=== PATIENT | male | born 1955 | race Caucasian/White ===

== ENCOUNTER → 2017-06-08 | Outpatient (CLI) | payer OTHER ==
--- NOTE | 2017-06-09 08:33 | USB ---
Reason for exam: clinical finding. History: Family history of breast cancer in mother at age 60. Indicated problem(s): palpable abnormality in the left breast. Physical Findings: Nurse Summary: 1cm nodule movable, tender with palpation (nurse rm). US Breast BILAT Right breast ultrasound includes all four quadrants, the retroareolar region and axilla. Finding demonstrates several normal nodes in the right axilla. Left breast ultrasound includes all four quadrants, the retroareolar region and axilla. Finding demonstrates a 1.9 x 0.9 x 1.6cm oval, solid, isoechoic lesion at 8 o'clock, questionable lipoma. These results were verbally communicated with the patient and result sheet given to the patient on 06/08/17. ASSESSMENT: Probably benign, BI-RAD 3 RECOMMENDATION: Ultrasound of the left breast in 6 months. Manage patient on a clinical basis.
== END | disposition home or self-care (01) ==
LOC: RADUSWWP 14:29
PROVIDERS: ATTEND Family Medicine
DX: D48.60 Neoplasm of uncertain behavior of unspecified breast (principal)

== ENCOUNTER → 2019-03-23 | Outpatient (CLI) | payer OTHER ==
--- NOTE | 2019-03-23 15:03 | USB ---
Reason for exam: clinical finding. History: Family history of breast cancer in mother at age 60 and breast cancer in maternal aunt. US Breast BILAT Right limited breast ultrasound including focal area of concern, retroareolar and axilla demonstrates a 0.5 x 0.5 x 0.3cm hyperechoic lesion at 2 o'clock appears as a lipoma or hemangioma. Left complete breast ultrasound includes all four quadrants, the retroareolar region and axilla. Finding demonstrates a 2.2 x 1.6 x 0.8cm lesion at 8 o'clock, isoechoic, compresses previoiusly measured 2.0 x 0.9 x 1.6cm. These results were verbally communicated with the patient and result sheet given to the patient on 03/23/19. ASSESSMENT: Benign, BI-RAD 2 RECOMMENDATION: Clinical management of both breasts. Manage patient on a clinical basis.
--- NOTE | 2019-03-24 08:01 | MM ---
Reason for exam: clinical finding. History: Family history of breast cancer in mother at age 60 and breast cancer in maternal aunt. Indicated problem(s): lump or thickening in both breasts. Physical Findings: Nurse Summary: 1.5cm nodule in the left breast at 8 o'clock, pain with palpation (nurse mj). MG Diagnostic Mammo w CAD MANPREET Bilateral CC and MLO view(s) were taken. Benign appearing calcification in the left breast. No suspicious abnormality. These results were verbally communicated with the patient and result sheet given to the patient on 03/23/19. ASSESSMENT: Benign, BI-RAD 2 RECOMMENDATION: Clinical management of both breasts. Manage patient on a clinical basis.
== END | disposition home or self-care (01) ==
LOC: RADMAMWWP 02-15 09:19
PROVIDERS: ATTEND Family Medicine
DX: N63.0 Unspecified lump in unspecified breast (principal)
CPT/HCPCS: 77066

== ENCOUNTER 2019-12-17 17:09 | Emergency (ER) | payer OTHER ==
[2019-12-17] MEDS ORDERED: SODIUM CHLORIDE 0.9% 500 ML 500 ML IV STA (17:23)
[2019-12-17 17:39] LABS: Basophils % (A) 0 %; Eosinophils # (A) 0.1 k/uL (0-0.7); Eosinophils % (A) 1 %; HCT 43.2 % (39.0-53.0); Lymphocytes # (A) 2.6 k/uL (1.0-4.8); Lymphocytes % (A) 32 %; MCH 31.5 pg (25.0-35.0); MCHC 34.6 g/dL (31.0-37.0); MCV 90.9 fL (80.0-100.0); Mean Platelet Volume 10.2; Monocytes # (A) 0.3 k/uL (0-1.0); Monocytes % (A) 4 %; Neutrophils # (A) 4.8 k/uL (1.3-7.7); Neutrophils % (A) 60 %; Platelet Count 193 k/uL (150-450); RBC 4.75 m/uL (4.30-5.90); RDW 13.3 % (11.5-15.5)
[2019-12-17] MEDS ORDERED: LORazepam 2 MG/ML INJ IV STA (17:44)
[2019-12-17 17:50] LABS: Partial Thromboplastin Time 29.8 sec (22.0-30.0); Prothrombin Time 10.5 sec (9.0-12.0)
--- NOTE | 2019-12-17 17:50 | ED ---
General Adult HPI - General Chief complaint: Shortness of Breath Stated complaint: YIMI Time Seen by Provider: 12/17/19 17:10 Source: patient, EMS, RN notes reviewed Mode of arrival: EMS Limitations: no limitations - History of Present Illness Initial comments: 64-year-old male a past medical history of hypertension, CABG several years ago presents to the emergency department for a chief complaint of cough, shortness of breath. This has apparently been going on for 3 days. Patient has not noticed any fevers. Patient is a smoker but does not believe he has a history of COPD. Patient states his was quarantined for coronavirus however she was not diagnosed. He is not sure why she was quarantine. He does not have any chest pain.Patient has no other complaints at this time including chest pain, abdominal pain, nausea or vomiting, headache, or visual changes. - Related Data Allergies Allergy/AdvReac Type Severity Reaction Status Date / Time iodine Allergy Unknown Verified 12/17/19 17:39 shellfish derived [Shellfish] Allergy Unknown Verified 12/17/19 17:39 Review of Systems ROS Statement: Those systems with pertinent positive or pertinent negative responses have been documented in the HPI. ROS Other: All systems not noted in ROS Statement are negative. Past Medical History Past Medical History: Hypertension History of Any Multi-Drug Resistant Organisms: None Reported, MRSA Date of last positivie culture/infection: 2019 MDRO Source:: unknown Past Surgical History: Unable to Obtain Past Psychological History: Anxiety Smoking Status: Current every day smoker Past Alcohol Use History: None Reported Past Drug Use History: Marijuana General Exam Limitations: no limitations General appearance: alert, in no apparent distress Head exam: Present: atraumatic, normocephalic, normal inspection Eye exam: Present: normal appearance, PERRL, EOMI. Absent: scleral icterus, conjunctival injection, periorbital swelling ENT exam: Present: normal exam, mucous membranes moist, normal external ear exam Neck exam: Present: normal inspection, full ROM. Absent: tenderness, meningismus Respiratory exam: Present: normal lung sounds bilaterally. Absent: respiratory distress, wheezes, rales, rhonchi, stridor Cardiovascular Exam: Present: regular rate, normal rhythm, normal heart sounds. Absent: systolic murmur, diastolic murmur, rubs, gallop, clicks GI/Abdominal exam: Present: soft, normal bowel sounds. Absent: distended, tenderness, guarding, rebound, rigid Neurological exam: Present: alert Course Vital Signs 12/17/19 12/17/19 12/17/19 17:13 17:16 17:30 Temperature 97.9 F Pulse Rate 71 80 Respiratory 22 22 20 Rate Blood Pressure 145/104 129/81 O2 Sat by Pulse 100 100 Oximetry 12/17/19 12/17/19 18:16 18:32 Temperature 98.0 F Pulse Rate 76 79 Respiratory 18 16 Rate Blood Pressure 129/84 O2 Sat by Pulse 97 99 Oximetry EKG Findings - EKG Comments: EKG Findings:: Sinus rhythm, ventricular rate 77, LA interval 214, QTc 457 Medical Decision Making - Medical Decision Making On initial examination patient was very anxious and was hyperventilating. However after about 20 minutes he slowed his breathing and felt much better. Patient is noted to have a cough which she states is nonproductive. He is currently resting comfortably and satting at 100% room air. Lungs are clear bilaterally. Patient is not in any respiratory distress. He is lying back in bed without accessory muscle usage. Chest x-ray shows no active cardiopulmonary disease. CBC CMP unremarkable. Troponin is negative. patient was reevaluated and has a normal respiratory rate. He is much more calm. He is denying shortness of breath at this time. I suspect patient had a acute episode of anxiety which he does agree with. He is not in any respiratory distress at this time. Patient is feeling well enough to go home. In fact he is requesting discharge. Patient will follow up with primary care. If he has any worsening symptoms including chest pain he will return here to the emergency room. - Lab Data Result diagrams: 12/17/19 17:26 12/17/19 17:26 Lab Results 12/17/19 12/17/19 12/17/19 Range/Units 17:26 17:26 17:26 WBC 8.0 (3.8-10.6) k/uL RBC 4.75 (4.30-5.90) m/uL Hgb 15.0 (13.0-17.5) gm/dL Hct 43.2 (39.0-53.0) % MCV 90.9 (80.0-100.0) fL MCH 31.5 (25.0-35.0) pg MCHC 34.6 (31.0-37.0) g/dL RDW 13.3 (11.5-15.5) % Plt Count 193 (150-450) k/uL Neutrophils % 60 % Lymphocytes % 32 % Monocytes % 4 % Eosinophils % 1 % Basophils % 0 % Neutrophils # 4.8 (1.3-7.7) k/uL Lymphocytes # 2.6 (1.0-4.8) k/uL Monocytes # 0.3 (0-1.0) k/uL Eosinophils # 0.1 (0-0.7) k/uL Basophils # 0.0 (0-0.2) k/uL PT 10.5 (9.0-12.0) sec INR 1.0 (<1.2) APTT 29.8 (22.0-30.0) sec Sodium 137 (137-145) mmol/L Potassium 4.6 (3.5-5.1) mmol/L Chloride 104 (98-107) mmol/L Carbon Dioxide 22 (22-30) mmol/L Anion Gap 11 mmol/L BUN 20 (9-20) mg/dL Creatinine 1.11 (0.66-1.25) mg/dL Est GFR (CKD-EPI)AfAm 80 (>60 ml/min/1.73 sqM) Est GFR (CKD-EPI)NonAf 69 (>60 ml/min/1.73 sqM) Glucose 94 (74-99) mg/dL Calcium 9.6 (8.4-10.2) mg/dL Total Bilirubin 0.5 (0.2-1.3) mg/dL AST 27 (17-59) U/L ALT 21 (4-49) U/L Alkaline Phosphatase 77 (38-126) U/L Troponin I (0.000-0.034) ng/mL C-Reactive Protein 9.7 (<10.0) mg/L Total Protein 6.9 (6.3-8.2) g/dL Albumin 4.4 (3.5-5.0) g/dL 12/17/19 Range/Units 17:26 WBC (3.8-10.6) k/uL RBC (4.30-5.90) m/uL Hgb (13.0-17.5) gm/dL Hct (39.0-53.0) % MCV (80.0-100.0) fL MCH (25.0-35.0) pg MCHC (31.0-37.0) g/dL RDW (11.5-15.5) % Plt Count (150-450) k/uL Neutrophils % % Lymphocytes % % Monocytes % % Eosinophils % % Basophils % % Neutrophils # (1.3-7.7) k/uL Lymphocytes # (1.0-4.8) k/uL Monocytes # (0-1.0) k/uL Eosinophils # (0-0.7) k/uL Basophils # (0-0.2) k/uL PT (9.0-12.0) sec INR (<1.2) APTT (22.0-30.0) sec Sodium (137-145) mmol/L Potassium (3.5-5.1) mmol/L Chloride (98-107) mmol/L Carbon Dioxide (22-30) mmol/L Anion Gap mmol/L BUN (9-20) mg/dL Creatinine (0.66-1.25) mg/dL Est GFR (CKD-EPI)AfAm (>60 ml/min/1.73 sqM) Est GFR (CKD-EPI)NonAf (>60 ml/min/1.73 sqM) Glucose (74-99) mg/dL Calcium (8.4-10.2) mg/dL Total Bilirubin (0.2-1.3) mg/dL AST (17-59) U/L ALT (4-49) U/L Alkaline Phosphatase (38-126) U/L Troponin I <0.012 (0.000-0.034) ng/mL C-Reactive Protein (<10.0) mg/L Total Protein (6.3-8.2) g/dL Albumin (3.5-5.0) g/dL Disposition Clinical Impression: Cough Disposition: HOME SELF-CARE Condition: Good Instructions (If sedation given, give patient instructions): Acute Cough (ED) Additional Instructions: Please follow up with primary care in 1-2 days. Otherwise, return for any worsening symptoms including chest pain or worsening shortness of breath. Self quarantined for 2 weeks. Is patient prescribed a controlled substance at d/c from ED?: No Referrals: Aaron Boyd MD [Primary Care Provider] - 1-2 days Time of Disposition: 18:18
[2019-12-17 17:54] LABS: Albumin 4.4 g/dL (3.5-5.0); C Reactive Protein 9.7 mg/L (<10.0); Calcium 9.6 mg/dL (8.4-10.2); Potassium 4.6 mmol/L (3.5-5.1); Total Bilirubin 0.5 mg/dL (0.2-1.3); Total Protein 6.9 g/dL (6.3-8.2)
--- NOTE | 2019-12-17 18:03 | XR ---
EXAMINATION TYPE: XR chest 1V portable DATE OF EXAM: 12/17/2019 COMPARISON: 12/27/2013 HISTORY: Short of breath and cough TECHNIQUE: FINDINGS: Heart is normal. Lungs are clear of infiltrate. There is no heart failure. There are chest leads. Costophrenic angles are clear. Bony thorax is intact. IMPRESSION: No active cardiopulmonary disease. No change.
[2019-12-17 18:34] VITALS: BP 129/84; PULSE 79; RESP 16; TEMP 98
== END 2019-12-17 18:55 | disposition home or self-care (01) ==
LOC: EC 17:09
DX: R05 Cough (principal); R06.02 Shortness of breath; R06.00 Dyspnea, unspecified; I10 Essential (primary) hypertension; F17.200 Nicotine dependence, unspecified, uncomplicated; Z91.048 Other nonmedicinal substance allergy status; Z91.013 Allergy to seafood
CPT/HCPCS: 36415; 71045; 80053; 84484; 85025; 85610; 85730; 86140; 93005; 96360; 99285

== ENCOUNTER 2022-10-10 22:18 | Inpatient (IN) | payer OTHER, MEDICARE ==
--- NOTE | 2022-10-10 22:27 | ED ---
Weakness HPI - General Chief complaint: Fall Stated complaint: Fall Time Seen by Provider: 10/10/22 22:19 Source: patient, EMS, RN notes reviewed, old records reviewed Mode of arrival: EMS Limitations: no limitations - History of Present Illness Initial comments: This is a 67-year-old male DF for evaluation. Patient states his main complaint significant depression he's not feeling well is very weak is decreased mobility and decreased activity not functioning ADLs recently lost his and otherwise does not feel well. He denies current homicidal or suicidal thoughts and denies drug or alcohol abuse -: unknown Location: generalized Severity: moderate Severity scale (1-10): 4 Improves with: none Worsens with: none Associated Symptoms: confusion, loss of appetite, nausea/vomiting, shortness of breath - Related Data Allergies Allergy/AdvReac Type Severity Reaction Status Date / Time iodine Allergy Anaphylaxis Verified 12/17/19 18:52 shellfish derived [Shellfish] Allergy Anaphylaxis Verified 12/17/19 18:52 Review of Systems ROS Statement: Those systems with pertinent positive or pertinent negative responses have been documented in the HPI. ROS Other: All systems not noted in ROS Statement are negative. Past Medical History Past Medical History: Hypertension History of Any Multi-Drug Resistant Organisms: None Reported, MRSA Date of last positivie culture/infection: 2019 MDRO Source:: unknown Past Surgical History: Unable to Obtain Past Psychological History: Anxiety Past Alcohol Use History: None Reported Past Drug Use History: Marijuana General Exam Limitations: no limitations General appearance: alert, in no apparent distress Head exam: Present: atraumatic, normocephalic, normal inspection Eye exam: Present: normal appearance, PERRL, EOMI. Absent: scleral icterus, conjunctival injection, periorbital swelling ENT exam: Present: normal exam, mucous membranes moist Neck exam: Present: normal inspection. Absent: tenderness, meningismus, lymphadenopathy Respiratory exam: Present: normal lung sounds bilaterally. Absent: respiratory distress, wheezes, rales, rhonchi, stridor Cardiovascular Exam: Present: regular rate, normal rhythm, normal heart sounds. Absent: systolic murmur, diastolic murmur, rubs, gallop, clicks GI/Abdominal exam: Present: soft, normal bowel sounds. Absent: distended, tenderness, guarding, rebound, rigid Extremities exam: Present: normal inspection, full ROM, normal capillary refill. Absent: tenderness, pedal edema, joint swelling, calf tenderness Back exam: Present: normal inspection Neurological exam: Present: alert, oriented X3, CN II-XII intact Psychiatric exam: Present: normal affect, normal mood Skin exam: Present: warm, dry, intact, normal color. Absent: rash Course Vital Signs 10/10/22 22:21 Temperature 97.6 F Pulse Rate 106 H Respiratory 28 H Rate Blood Pressure 212/106 O2 Sat by Pulse 99 Oximetry - Reevaluation(s) Reevaluation #1: 10/10/22 23:59 Medical records reviewed Reevaluation #2: 10/10/22 23:59 No improvement here in the ER Reevaluation #3: 10/10/22 23:59 Patient informed of results and questions are answered Reevaluation #4: 10/10/22 23:59 Differential Weakness: Hypoglycemia, shock, sepsis, hyponatremia, anemia, infection, NH, ETOH, adverse medicine reaction, overdose, stroke, this is not meant to be an all-inclusive list. Reevaluation #5: 10/10/22 23:59 Was pt. sent in by a medical professional or institution? @ -no Did you speak to anyone other than the patient for history? @ -no Did you review nursing and triage notes? @ -agree Were old charts reviewed? @ -no prior Differential Diagnosis? @ -no prior EKG interpreted by me (3pts min.)? @ -[none] X-rays interpreted by me (1pt min.)? @ -[none] CT interpreted by me (1pt min.)? @ -[none] U/S interpreted by me (1pt. min.)? @ -[none] What testing was considered but not performed? (CT, X-rays, U/S, labs)? Why? @ no What meds were considered but not given? Why? @ -[none] Did you discuss the management of the patient with other professionals? @ -no Did you reconcile home meds? @ -[none] Was smoking cessation discussed for >3mins.? @ -[none] Was critical care preformed (if so, how long)? @ -[none] Were there social determinants of health that impacted care today? How? ( Homelessness, low income, unemployed, alcoholism, drug addiction, transportation, low edu. Level, literacy, decrease access to med. care, nursing home, rehab)? @ -no Was there de-escalation of care discussed even if they declined? (Discuss DNR or withdrawal of care, Hospice)? @ -no What co-morbidities impacted this encounter? (DM, HTN, Smoking, COPD, CAD, Cancer, CVA, Hep., AIDS, mental health diagnosis, sleep apnea, morbid obesity)? @ -no Was patient admitted / discharged? @ -dc ] Undiagnosed new problem with uncertain prognosis? @ -[none] Drug Therapy requiring intensive monitoring for toxicity (Heparin, Nitro, Insulin, Cardizem)? @ -[none] Were any procedures done? @ -[none] Diagnosis/symptom? @ -[default] Acute, or Chronic, or Acute on Chronic? @ -[default] Uncomplicated (without systemic symptoms) or Complicated (systemic symptoms)? @ -[default] Side effects of treatment? @ -[none] Exacerbation, Progression, or Severe Exacerbation] @ -[no] Poses a threat to life or bodily function? @ -[no] - Consultations Consultation #1: Spoke with admitting physicians agreeable with this patient EKG Findings - EKG Comments: EKG Findings:: EKG sinus 91 MT 185 QRS 114 QTc 445 Medical Decision Making - Medical Decision Making 67 male to the ER admitted for elevated blood sugar new onSet diabetes hyperglycemia weakness fall with severe depression. Patient be admitted for evaluation by psychiatry and blood sugar control - Lab Data Result diagrams: 10/10/22 22:52 10/10/22 22:52 Lab Results 10/10/22 10/10/22 10/10/22 Range/Units 22:52 22:52 22:52 WBC 8.6 (3.8-10.6) k/uL RBC 4.88 (4.30-5.90) m/uL Hgb 14.8 (13.0-17.5) gm/dL Hct 43.1 (39.0-53.0) % MCV 88.3 (80.0-100.0) fL MCH 30.3 (25.0-35.0) pg MCHC 34.3 (31.0-37.0) g/dL RDW 12.6 (11.5-15.5) % Plt Count 228 (150-450) k/uL MPV 9.7 Neutrophils % 68 % Lymphocytes % 23 % Monocytes % 5 % Eosinophils % 1 % Basophils % 1 % Neutrophils # 5.8 (1.3-7.7) k/uL Lymphocytes # 2.0 (1.0-4.8) k/uL Monocytes # 0.4 (0-1.0) k/uL Eosinophils # 0.1 (0-0.7) k/uL Basophils # 0.1 (0-0.2) k/uL Sodium 132 L (137-145) mmol/L Potassium 5.2 H (3.5-5.1) mmol/L Chloride 99 (98-107) mmol/L Carbon Dioxide 18 L (22-30) mmol/L Anion Gap 15 mmol/L BUN 17 (9-20) mg/dL Creatinine 0.91 (0.66-1.25) mg/dL Est GFR (CKD-EPI)AfAm >90 (>60 ml/min/1.73 sqM) Est GFR (CKD-EPI)NonAf 86 (>60 ml/min/1.73 sqM) Glucose 588 H* (74-99) mg/dL POC Glucose (mg/dL) (70-110) mg/dL POC Glu Pipe Coremaker ID Calcium 9.5 (8.4-10.2) mg/dL Total Bilirubin 0.6 (0.2-1.3) mg/dL AST 30 (17-59) U/L ALT 35 (4-49) U/L Alkaline Phosphatase 298 H (38-126) U/L Total Protein 6.6 (6.3-8.2) g/dL Albumin 4.0 (3.5-5.0) g/dL Lipase 96 (23-300) U/L Salicylates <1.0 mg/dL Urine Opiates Screen Not Detected (NotDetected) Ur Oxycodone Screen Not Detected (NotDetected) Urine Methadone Screen Not Detected (NotDetected) Ur Propoxyphene Screen Not Detected (NotDetected) Acetaminophen <10.0 ug/mL Ur Barbiturates Screen Not Detected (NotDetected) U Tricyclic Antidepress Not Detected (NotDetected) Ur Phencyclidine Scrn Not Detected (NotDetected) Ur Amphetamines Screen Not Detected (NotDetected) U Methamphetamines Scrn Not Detected (NotDetected) U Benzodiazepines Scrn Not Detected (NotDetected) Urine Cocaine Screen Not Detected (NotDetected) U Marijuana (THC) Screen Not Detected (NotDetected) Serum Alcohol <10 mg/dL 10/11/22 Range/Units 00:59 WBC (3.8-10.6) k/uL RBC (4.30-5.90) m/uL Hgb (13.0-17.5) gm/dL Hct (39.0-53.0) % MCV (80.0-100.0) fL MCH (25.0-35.0) pg MCHC (31.0-37.0) g/dL RDW (11.5-15.5) % Plt Count (150-450) k/uL MPV Neutrophils % % Lymphocytes % % Monocytes % % Eosinophils % % Basophils % % Neutrophils # (1.3-7.7) k/uL Lymphocytes # (1.0-4.8) k/uL Monocytes # (0-1.0) k/uL Eosinophils # (0-0.7) k/uL Basophils # (0-0.2) k/uL Sodium (137-145) mmol/L Potassium (3.5-5.1) mmol/L Chloride (98-107) mmol/L Carbon Dioxide (22-30) mmol/L Anion Gap mmol/L BUN (9-20) mg/dL Creatinine (0.66-1.25) mg/dL Est GFR (CKD-EPI)AfAm (>60 ml/min/1.73 sqM) Est GFR (CKD-EPI)NonAf (>60 ml/min/1.73 sqM) Glucose (74-99) mg/dL POC Glucose (mg/dL) 433 H (70-110) mg/dL POC Glu Pipe Coremaker ID Skylar Delgado Calcium (8.4-10.2) mg/dL Total Bilirubin (0.2-1.3) mg/dL AST (17-59) U/L ALT (4-49) U/L Alkaline Phosphatase (38-126) U/L Total Protein (6.3-8.2) g/dL Albumin (3.5-5.0) g/dL Lipase (23-300) U/L Salicylates mg/dL Urine Opiates Screen (NotDetected) Ur Oxycodone Screen (NotDetected) Urine Methadone Screen (NotDetected) Ur Propoxyphene Screen (NotDetected) Acetaminophen ug/mL Ur Barbiturates Screen (NotDetected) U Tricyclic Antidepress (NotDetected) Ur Phencyclidine Scrn (NotDetected) Ur Amphetamines Screen (NotDetected) U Methamphetamines Scrn (NotDetected) U Benzodiazepines Scrn (NotDetected) Urine Cocaine Screen (NotDetected) U Marijuana (THC) Screen (NotDetected) Serum Alcohol mg/dL Disposition Clinical Impression: Fall, Hyperglycemia, Weakness, Diabetes mellitus, new onset Disposition: ADMITTED IP TO THIS HOSP Condition: Fair Is patient prescribed a controlled substance at d/c from ED?: No Referrals: Aaron Boyd MD [Primary Care Provider] - 1-2 days Time of Disposition: 01:35
[2022-10-10] MEDS ORDERED: LORazepam 2 MG/ML INJ IV STA (22:42)
[2022-10-10] MEDS ORDERED: ONDANSETRON 4 MG/2 ML VIAL IVP STA (22:42)
[2022-10-10] MEDS ORDERED: SODIUM CHLORIDE 0.9% 1,000 ML IV STA ×2 (22:42→23:51)
[2022-10-10 23:02] LABS: Basophils # (A) 0.1 k/uL (0-0.2); Basophils % (A) 1 %; Eosinophils # (A) 0.1 k/uL (0-0.7); Eosinophils % (A) 1 %; HCT 43.1 % (39.0-53.0); HGB 14.8 gm/dL (13.0-17.5); Lymphocytes % (A) 23 %; MCH 30.3 pg (25.0-35.0); MCHC 34.3 g/dL (31.0-37.0); MCV 88.3 fL (80.0-100.0); Mean Platelet Volume 9.7; Monocytes # (A) 0.4 k/uL (0-1.0); Monocytes % (A) 5 %; Neutrophils # (A) 5.8 k/uL (1.3-7.7); Neutrophils % (A) 68 %; Platelet Count 228 k/uL (150-450); RBC 4.88 m/uL (4.30-5.90); RDW 12.6 % (11.5-15.5); WBC 8.6 k/uL (3.8-10.6)
[2022-10-10 23:30] LABS: ALT 35 U/L (4-49); AST 30 U/L (17-59); Acetaminophen <10.0 ug/mL; African American GFR (CKD) >90 (>60 ml/min/1.73 sqM); Alcohol <10 mg/dL; Alkaline Phosphatase 298 U/L (38-126); Anion Gap 15 mmol/L; Blood Urea Nitrogen 17 mg/dL (9-20); Calcium 9.5 mg/dL (8.4-10.2); Carbon Dioxide 18 mmol/L (22-30); Chloride 99 mmol/L (98-107); Lipase 96 U/L (23-300); Non-African American GFR(CKD) 86 (>60 ml/min/1.73 sqM); Potassium 5.2 mmol/L (3.5-5.1); Salicylate <1.0 mg/dL; Sodium 132 mmol/L (137-145); Total Bilirubin 0.6 mg/dL (0.2-1.3); Total Protein 6.6 g/dL (6.3-8.2)
[2022-10-10 23:38] LABS: Amphetamine Screen,Urine Not Detected (NotDetected); Barbiturate Screen,Urine Not Detected (NotDetected); Benzodiazepines Screen,Urine Not Detected (NotDetected); Cocaine Screen,Urine Not Detected (NotDetected); Methadone Screen, Urine Not Detected (NotDetected); Opiate Screen,Urine Not Detected (NotDetected); Oxycodone Screen, Urine Not Detected (NotDetected); Phencyclidine Screen,Urine Not Detected (NotDetected); Tricyclic Antidepressant,Urine Not Detected (NotDetected); Urn Cannabinoid Scrn Not Detected (NotDetected)
[2022-10-10 23:40] LABS: Glucose 588 mg/dL (74-99)
[2022-10-10] MEDS ORDERED: SODIUM BICARB 8.4% 50 ML SYR (1 MEQ/ML) IV STA (23:51)
[2022-10-10] MEDS ORDERED: INSULIN REGULAR 100 UNIT/ML VIAL (IV) IV ONE (23:51)
[2022-10-10] MEDS ORDERED: INSULIN REGULAR 100 UNIT/ML VIAL (IM/SQ) SQ ONE (23:51)
[2022-10-10] MEDS ORDERED: SODIUM CHLORIDE 0.9% 500 ML 500 ML IV STA (23:51)
[2022-10-11 01:00] LABS: Glucose,Whole Blood 433 mg/dL (70-110)
[2022-10-11] MEDS ORDERED: INSULIN REGULAR 100 UNIT/ML VIAL (IV) IV ONE (01:06)
[2022-10-11] MEDS ORDERED: INSULIN REGULAR 100 UNIT/ML VIAL (IM/SQ) SQ ONE (01:09)
[2022-10-11] MEDS ORDERED: MORPHINE SULFATE 4 MG/ML SYRINGE IV PRN (01:33)
[2022-10-11] MEDS ORDERED: ONDANSETRON 4 MG/2 ML VIAL IVP PRN (01:33)
[2022-10-11] MEDS ORDERED: NALOXONE 0.4 MG/ML 1 ML VIAL IV PRN (01:33)
[2022-10-11 02:00] LABS: Glucose,Whole Blood 355 mg/dL (70-110)
[2022-10-11 03:08] LABS: Glucose,Whole Blood 288 mg/dL (70-110)
[2022-10-11] MEDS: SODIUM CHLORIDE 0.9% 1,000 ML IV SCH ×3 (03:19→17:53)
--- NOTE | 2022-10-11 03:50 | P.HPIM ---
History of Present Illness H&P Date: 10/11/22 The patient is a 67-year-old male with a PMH of type II DM who was brought to the emergency room by the police after the patient was found sitting at the edge of the road. The patient reports that he recently lost his . He states that this is causing him and strain on him, and that he just does not feel like himself. He reports that he has not been taking his oral diabetes medications including metformin and her other medication that he was unable to name. Also states that he has not been taking care of himself. States that he fell earlier today, without head trauma or loss of consciousness and that he simply didn't wish to get up and walk again. He denied any additional complaints. He denied experiencing chest discomfort, shortness of breath, fever, chills, cough, nausea, vomiting, abdominal pain, diarrhea. Patient denied suicidal ideation. EKG revealed sinus rhythm at 91 bpm with borderline QRS duration and diffuse flattening of T waves. Laboratory evaluation was remarkable for sodium 132, potassium 5.2, glucose 588, and anion gap 15. Review of systems: Pertinent positives and negatives as discussed in HPI, a complete review of systems was performed and all other systems are negative. Physical examination: General: Disheveled male, non toxic, no distress, appears at stated age, overweight Derm: no unusual rashes/lesions, warm Head: atraumatic, normocephalic, symmetric Eyes: EOMI, no lid lag, anicteric sclera, pupils equal round reactive to light ENT: Nose and ears atraumatic Neck: No cervical lymphadenopathy, trachea midline, supple Mouth: no lip lesion, mucus membranes moist Cardiovascular: S1S2 reg, no murmur, positive dorsalis pedis pulse bilateral, no edema Lungs: CTA bilateral, no rhonchi, no rales, no accessory muscle use Abdominal: soft, nontender to palpation, no guarding Ext: muscle strength 5 out of 5 in all 4 extremities grossly, no gross muscle atrophy, no contractures, Neuro: CN II-XI grossly intact, no gross focal neuro deficits Psych: Alert, oriented, appropriate affect Assessment/plan Hyperglycemia with poorly controlled diabetes mellitus -Insulin sliding scale blood glucose monitoring -Levemir 15 units daily at bedtime -Check A1c Failure to thrive or depression -Psychiatry consulted -Social-work consult DVT prophylaxis -Heparin subcu The patient is admitted with an anticipated greater than 2 midnight stay for evaluation of hyperglycemia. CODE STATUS: Full Code Discussed with: Patient Anticipated discharge date: Anticipated discharge place: Home Past Medical History Past Medical History: Hypertension History of Any Multi-Drug Resistant Organisms: None Reported, MRSA Date of last positivie culture/infection: 2019 MDRO Source:: unknown Past Surgical History: Unable to Obtain Past Psychological History: Anxiety Past Alcohol Use History: None Reported Past Drug Use History: Marijuana - Past Family History Father Family Medical History: COPD Medications and Allergies Allergies Allergy/AdvReac Type Severity Reaction Status Date / Time iodine Allergy Anaphylaxis Verified 12/17/19 18:52 shellfish derived [Shellfish] Allergy Anaphylaxis Verified 12/17/19 18:52 Physical Exam Vitals: Vital Signs Temp Pulse Pulse Resp BP BP Pulse Ox 10/11/22 03:00 98.1 F 86 16 184/93 98 10/11/22 01:00 87 20 152/92 97 10/10/22 22:21 97.6 F 106 H 28 H 212/106 99 Intake and Output 10/10/22 10/10/22 10/11/22 14:59 22:59 06:59 Intake Total 10 Balance 10 Intake: IV 10 Invasive Line 1 10 Other: Weight 93.44 kg Results CBC & Chem 7: 10/10/22 22:52 10/10/22 22:52 Labs: Abnormal Lab Results - Last 24 Hours (Table) 10/10/22 10/11/22 10/11/22 Range/Units 22:52 00:59 01:58 Sodium 132 L (137-145) mmol/L Potassium 5.2 H (3.5-5.1) mmol/L Carbon Dioxide 18 L (22-30) mmol/L Glucose 588 H* (74-99) mg/dL POC Glucose (mg/dL) 433 H 355 H (70-110) mg/dL Alkaline Phosphatase 298 H (38-126) U/L 10/11/22 Range/Units 03:05 Sodium (137-145) mmol/L Potassium (3.5-5.1) mmol/L Carbon Dioxide (22-30) mmol/L Glucose (74-99) mg/dL POC Glucose (mg/dL) 288 H (70-110) mg/dL Alkaline Phosphatase (38-126) U/L
[2022-10-11 05:29] LABS: African American GFR (CKD) >90 (>60 ml/min/1.73 sqM); Anion Gap 5 mmol/L; Blood Urea Nitrogen 14 mg/dL (9-20); Calcium 8.1 mg/dL (8.4-10.2); Carbon Dioxide 26 mmol/L (22-30); Chloride 106 mmol/L (98-107); Glucose 307 mg/dL (74-99); Non-African American GFR(CKD) >90 (>60 ml/min/1.73 sqM); Potassium 3.6 mmol/L (3.5-5.1); Sodium 137 mmol/L (137-145)
[2022-10-11 05:38] LABS: Glucose,Whole Blood 422 mg/dL (70-110)
[2022-10-11] MEDS: INSULIN DETEMIR (LEVEMIR) 100 UNIT/ML SYR SQ SCH ×2 (05:38→20:47)
[2022-10-11] MEDS: INSULIN ASPART (NovoLOG) 100 UNIT/ML VIAL SQ SCH ×6 (06:00→20:48)
[2022-10-11 08:35] LABS: Glucose,Whole Blood 249 mg/dL (70-110)
[2022-10-11 11:41] LABS: Glucose,Whole Blood 108 mg/dL (70-110)
[2022-10-11 16:29] LABS: Glucose,Whole Blood 130 mg/dL (70-110)
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
[2022-10-11 20:17] LABS: Glucose,Whole Blood 237 mg/dL (70-110)
[2022-10-11] MEDS: MIRTAZAPINE 15 MG TAB PO SCH (20:48)
[2022-10-11] MEDS: hydrOXYzine HCL 10 MG TAB PO SCH (20:53)
[2022-10-12 02:35] LABS: Glucose,Whole Blood 104 mg/dL (70-110)
[2022-10-12 06:17] LABS: Glucose,Whole Blood 186 mg/dL (70-110)
[2022-10-12] MEDS: SODIUM CHLORIDE 0.9% 1,000 ML IV SCH ×3 (06:39→18:52)
[2022-10-12] MEDS: INSULIN ASPART (NovoLOG) 100 UNIT/ML VIAL SQ SCH ×7 (06:39→21:29)
[2022-10-12 08:23] LABS: ALT 26 U/L (4-49); AST 25 U/L (17-59); African American GFR (CKD) >90 (>60 ml/min/1.73 sqM); Albumin 2.9 g/dL (3.5-5.0); Alkaline Phosphatase 103 U/L (38-126); Anion Gap 4 mmol/L; Blood Urea Nitrogen 8 mg/dL (9-20); Calcium 7.5 mg/dL (8.4-10.2); Carbon Dioxide 23 mmol/L (22-30); Chloride 110 mmol/L (98-107); Glucose 116 mg/dL (74-99); Magnesium 1.8 mg/dL (1.6-2.3); Non-African American GFR(CKD) >90 (>60 ml/min/1.73 sqM); Phosphorus 2.7 mg/dL (2.5-4.5); Potassium 3.5 mmol/L (3.5-5.1); Sodium 137 mmol/L (137-145); Total Bilirubin 0.7 mg/dL (0.2-1.3); Total Protein 5.4 g/dL (6.3-8.2)
[2022-10-12 08:35] LABS: Basophils % (A) 1 %; Eosinophils # (A) 0.1 k/uL (0-0.7); Eosinophils % (A) 1 %; HCT 38.9 % (39.0-53.0); HGB 13.5 gm/dL (13.0-17.5); Lymphocytes # (A) 1.8 k/uL (1.0-4.8); Lymphocytes % (A) 25 %; MCH 30.6 pg (25.0-35.0); MCHC 34.6 g/dL (31.0-37.0); MCV 88.4 fL (80.0-100.0); Mean Platelet Volume 9.3; Monocytes # (A) 0.4 k/uL (0-1.0); Monocytes % (A) 5 %; Neutrophils # (A) 4.8 k/uL (1.3-7.7); Neutrophils % (A) 67 %; Platelet Count 177 k/uL (150-450); RDW 13.1 % (11.5-15.5); WBC 7.2 k/uL (3.8-10.6)
[2022-10-12] MEDS ORDERED: NON FORMULARY DRUG (Ubidecarenone [Coenzyme Q10] 200 MG Capsule) PO SCH (09:00)
[2022-10-12] MEDS ORDERED: NON FORMULARY DRUG (Omega-3/Dha/Epa/Fish Oil [Fish Oil 1,000 Mg Softgel] 1 EACH Capsule) PO SCH (09:00)
[2022-10-12 09:12] VITALS: RESP 18
[2022-10-12] MEDS: hydrOXYzine HCL 10 MG TAB PO SCH ×2 (09:12→21:29)
[2022-10-12] MEDS: ASPIRIN 81 MG PO SCH (09:12)
[2022-10-12] MEDS: FOLIC ACID 1 MG TAB PO SCH (09:12)
[2022-10-12] MEDS: SERTRALINE 100 MG TAB PO SCH (09:12)
[2022-10-12] MEDS: MULTIVITAMINS, THERA 1 EACH TAB PO SCH (09:13)
[2022-10-12 11:41] LABS: Glucose,Whole Blood 231 mg/dL (70-110)
[2022-10-12 14:00] VITALS: BMI 29.0
[2022-10-12 16:16] LABS: Glucose,Whole Blood 186 mg/dL (70-110)
--- NOTE | 2022-10-12 16:19 | P.DS ---
Providers Date of admission: 10/11/22 01:35 Expected date of discharge: 10/12/22 Attending physician: Kiana Salguero MD Consults: 10/11/22 01:33 Consult Physician Routine Consulting Provider: Arnoldo Franco Consult Reason/Comments: depression Do you want consulting provider notified?: Yes Primary care physician: Aaron Boyd MD Hospital Course: The patient is a 67-year-old male with a PMH of type II DM who was brought to the emergency room by the police after the patient was found sitting at the edge of the road. The patient reports that he recently lost his . He states that this is causing him and strain on him, and that he just does not feel like himself. He reports that he has not been taking his oral diabetes medications including metformin and her other medication that he was unable to name. Also states that he has not been taking care of himself. States that he fell earlier today, without head trauma or loss of consciousness and that he simply didn't wish to get up and walk again. He denied any additional complaints. He denied experiencing chest discomfort, shortness of breath, fever, chills, cough, nausea, vomiting, abdominal pain, diarrhea. Patient denied suicidal ideation. EKG revealed sinus rhythm at 91 bpm with borderline QRS duration and diffuse flattening of T waves. Laboratory evaluation was remarkable for sodium 132, pot assium 5.2, glucose 588, and anion gap 15. Patient was started on long-acting and short-acting insulin. His HbA1c was 13.9. Psychiatry was consulted and recommended inpatient psychiatric admission. Patient was medically cleared for transfer to inpatient psych. General: Disheveled male, non toxic, no distress, appears at stated age, overweight Derm: no unusual rashes/lesions, warm Head: atraumatic, normocephalic, symmetric Eyes: EOMI, no lid lag, anicteric sclera ENT: Nose and ears atraumatic Neck: No cervical lymphadenopathy, trachea midline, supple Mouth: no lip lesion, mucus membranes moist Cardiovascular: S1S2 reg, no murmur, no edema Lungs: CTA bilateral, no rhonchi, no rales, no accessory muscle use Ext: muscle strength 5 out of 5 in all 4 extremities grossly, no gross muscle atrophy, no contractures, Neuro: no gross focal neuro deficits Psych: Alert, oriented, appropriate affect Discharge diagnosis: Hyperglycemia with poorly controlled diabetes mellitus Major depressive disorder This complex discharge took 35 minutes to complete. Patient Condition at Discharge: Stable Plan - Discharge Summary Discharge Rx Participant: No New Discharge Prescriptions: New RX: Mirtazapine [Remeron] 7.5 mg PO HS tab RX: Insulin Detemir (Levemir) [Levemir] 15 unit SQ HS each RX: INSULIN ASPART (NovoLOG) [NovoLOG (formulary)] 5 unit SQ AC-TID each RX: INSULIN ASPART (NovoLOG) [NovoLOG (formulary)] 0 unit SQ ACHS each Continue RX: Sertraline [Zoloft] 100 mg PO DAILY RX: Ubidecarenone [Coenzyme Q10] 200 mg PO DAILY RX: [place]-3/Dha/Epa/Fish Oil [Fish Oil 1,000 mg Softgel] 1 cap PO DAILY RX: hydrOXYzine HCL [Atarax] 10 mg PO BID RX: Multivitamins, Thera [Multivitamin (formulary)] 1 tab PO DAILY RX: Folic Acid 1 mg PO DAILY RX: Aspirin EC [Ecotrin Low Dose] 81 mg PO DAILY Discharge Medication List RX: Aspirin EC [Ecotrin Low Dose] 81 mg PO DAILY 10/11/22 [History] RX: Folic Acid 1 mg PO DAILY 10/11/22 [History] RX: Multivitamins, Thera [Multivitamin (formulary)] 1 tab PO DAILY 10/11/22 [History] RX: [place]-3/Dha/Epa/Fish Oil [Fish Oil 1,000 mg Softgel] 1 cap PO DAILY 10/11/22 [History] RX: Sertraline [Zoloft] 100 mg PO DAILY 10/11/22 [History] RX: Ubidecarenone [Coenzyme Q10] 200 mg PO DAILY 10/11/22 [History] RX: hydrOXYzine HCL [Atarax] 10 mg PO BID 10/11/22 [History] RX: INSULIN ASPART (NovoLOG) [NovoLOG (formulary)] 0 unit SQ ACHS each 10/12/22 [Rx] RX: INSULIN ASPART (NovoLOG) [NovoLOG (formulary)] 5 unit SQ AC-TID each 10/12/22 [Rx] RX: Insulin Detemir (Levemir) [Levemir] 15 unit SQ HS each 10/12/22 [Rx] RX: Mirtazapine [Remeron] 7.5 mg PO HS tab 10/12/22 [Rx] Follow up Appointment(s)/Referral(s): Aaron Boyd MD [Primary Care Provider] - 1-2 days Discharge Disposition: TRANSFER TO PSYCH HOSP/UNIT
[2022-10-12] MEDS: HEPARIN SODIUM,PORCINE/PF 5,000 UNIT/0.5 ML SYRINGE SQ SCH (18:21)
[2022-10-12 19:58] LABS: Glucose,Whole Blood 264 mg/dL (70-110)
[2022-10-12] MEDS: INSULIN DETEMIR (LEVEMIR) 100 UNIT/ML SYR SQ SCH (21:27)
[2022-10-12] MEDS: MIRTAZAPINE 15 MG TAB PO SCH (21:28)
[2022-10-13] MEDS: HEPARIN SODIUM,PORCINE/PF 5,000 UNIT/0.5 ML SYRINGE SQ SCH ×4 (03:47→22:49)
[2022-10-13 06:07] LABS: Glucose,Whole Blood 131 mg/dL (70-110)
[2022-10-13] MEDS: ASPIRIN 81 MG PO SCH (08:29)
[2022-10-13] MEDS: hydrOXYzine HCL 10 MG TAB PO SCH ×2 (08:29→22:51)
[2022-10-13] MEDS: INSULIN ASPART (NovoLOG) 100 UNIT/ML VIAL SQ SCH ×7 (08:29→22:52)
[2022-10-13] MEDS: MULTIVITAMINS, THERA 1 EACH TAB PO SCH (08:29)
[2022-10-13] MEDS: SERTRALINE 100 MG TAB PO SCH (08:29)
[2022-10-13] MEDS: FOLIC ACID 1 MG TAB PO SCH (08:30)
[2022-10-13] MEDS: NICOTINE 21MG/24HR PATCH TRANSDERM SCH (09:42)
[2022-10-13 11:41] LABS: Glucose,Whole Blood 301 mg/dL (70-110)
--- NOTE | 2022-10-13 11:47 | P.PN ---
Subjective Progress Note Date: 10/13/22 The patient is a 67-year-old male with a PMH of type II DM who was brought to the emergency room by the police after the patient was found sitting at the edge of the road. The patient reports that he recently lost his . He states that this is causing him and strain on him, and that he just does not feel like himself. He reports that he has not been taking his oral diabetes medications i ncluding metformin and her other medication that he was unable to name. Also states that he has not been taking care of himself. States that he fell earlier today, without head trauma or loss of consciousness and that he simply didn't wish to get up and walk again. He denied any additional complaints. He denied experiencing chest discomfort, shortness of breath, fever, chills, cough, nausea, vomiting, abdominal pain, diarrhea. Patient denied suicidal ideation. EKG revealed sinus rhythm at 91 bpm with borderline QRS duration and diffuse flattening of T waves. Laboratory evaluation was remarkable for sodium 132, potassium 5.2, glucose 588, and anion gap 15. Patient was started on long-acting and short-acting insulin. His HbA1c was 13.9. Psychiatry was consulted and recommended inpatient psychiatric admission. Patient was medically cleared for transfer to inpatient psych. Unfortunately, his COVID-19 test came back positive. General: Disheveled male, non toxic, no distress, appears at stated age, overweight Derm: no unusual rashes/lesions, warm Head: atraumatic, normocephalic, symmetric Eyes: EOMI, no lid lag, anicteric sclera ENT: Nose and ears atraumatic Neck: No cervical lymphadenopathy, trachea midline, supple Mouth: no lip lesion, mucus membranes moist Cardiovascular: S1S2 reg, no murmur, no edema Lungs: CTA bilateral, no rhonchi, no rales, no accessory muscle use Ext: muscle strength 5 out of 5 in all 4 extremities grossly, no gross muscle atrophy, no contractures, Neuro: no gross focal neuro deficits Psych: Alert, oriented, appropriate affect Hyperglycemia with poorly controlled diabetes mellitus -Insulin sliding scale blood glucose monitoring -Levemir 15 units daily at bedtime -Continue NovoLog 5 units 3 times a day with meals -Hemoglobin A1c 13.9 COVID-19 -Patient asymptomatic -Continue to monitor Smoker -Nicotine patch ordered Failure to thrive or depression -Psychiatry consulted -Social-work consult DVT prophylaxis -Heparin subcu Objective - Vital Signs Vital signs: Vital Signs Temp 98.1 F 10/13/22 08:00 Pulse 98 10/13/22 08:00 Resp 18 10/13/22 08:00 BP 147/82 10/13/22 08:00 Pulse Ox 98 10/13/22 08:00 FiO2 Intake & Output 10/12/22 10/13/22 10/13/22 18:59 06:59 18:59 Intake Total 540 118 Output Total 403 581 150 Balance 137 -581 -32 Weight 92 kg Intake: Oral 540 118 Output: Urine 400 575 150 Stool 3 6 - Labs CBC & Chem 7: 10/12/22 07:26 10/12/22 07:26 Labs: Abnormal Lab Results - Last 24 Hours (Table) 10/12/22 10/12/22 10/12/22 Range/Units 14:44 16:14 19:55 POC Glucose (mg/dL) 186 H 264 H (70-110) mg/dL Coronavirus (PCR) Detected A (Not Detectd) 10/13/22 10/13/22 Range/Units 06:05 11:37 POC Glucose (mg/dL) 131 H 301 H (70-110) mg/dL Coronavirus (PCR) (Not Detectd)
--- NOTE | 2022-10-13 13:42 | P.PN ---
Progress Note - Text Progress Note Date: 10/13/22 Interval History: Patient was seen resting in bed accompanied by his one-to-one sitter and was directable and agreeable to speak with television writer in the room. The patient is currently denying any suicidal or homicidal ideation, intention, and/or plan. He does report feelings of guilt and hopelessness however this occurs in the context of bereavement after the recent loss of his last week. The patient is vehemently denying any suicidal or homicidal ideation, intention, and/or plan. He is not reporting any auditory or visual hallucinations. He is denying any paranoia or other delusions. In regards to depressive symptoms, the patient does report feelings of guilt however denies any changes in his appetite, issues with sleep, or any suicidal thoughts. He does report a previous attempt at suicide by cutting his wrists more than 30 years ago. He does express a desire to see outpatient psychiatry through the MD. he denies any current access to firearms or other weapons. Mental Status Exam: General Appearance: Patient appears to be stated age is alert, directable, and cooperative. Behavior: Patient is calmly seated without any agitated behavior. Speech: Patient's speech is fluent and nonpressured. Mood/Affect: Mood is improving mildly, affect is congruent and constricted. Suicidality/Homicidality: Patient denies having any suicidal or homicidal ideation intent or plan. Perceptions: Patient denies any visual hallucinations and denies any auditory hallucinations Though content/process: There is no evidence of any delusional thought content and thought process is linear and goal-directed. Memory and concentration: AOX3, grossly intact for the purposes of this session Judgment and insight: Improving mildly Vital Signs Temp 98.1 F 10/13/22 08:00 Pulse 95 10/13/22 12:00 Resp 18 10/13/22 12:00 BP 174/109 10/13/22 12:00 Pulse Ox 98 10/13/22 12:00 FiO2 Intake & Output 10/12/22 10/13/22 10/13/22 18:59 06:59 18:59 Intake Total 540 236 Output Total 403 581 150 Balance 137 -581 86 Weight 92 kg Intake: Oral 540 236 Output: Urine 400 575 150 Stool 3 6 Laboratory Results - Last 24 Hours 10/12/22 10/12/22 10/12/22 14:44 16:14 19:55 POC Glucose (mg/dL) 186 H 264 H POC Glu Configuration Consultant ID Yogesh Mustafa Nathan Coronavirus (PCR) Detected A 10/13/22 10/13/22 06:05 11:37 POC Glucose (mg/dL) 131 H 301 H POC Glu Configuration Consultant ID Mal Adams Diana Coronavirus (PCR) Assessment Major depressive disorder, recurrent, moderate, without psychotic features Bereavement Cannabis use disorder Alcohol use disorder, in remission Plan: -At this time, the patient DOES NOT meet criteria for inpatient psychiatric treatment. He has numerous protective factors includin. Future orientation (He wishes to work on his late 's affairs including services). 2. No access to firearms or other weapons 3. No substance abuse 4. Roman Catholic beliefs against suicide (Raised Anabaptist, converted to Religion) 5. Family and social supports (identifies his brother). Risk factors include a previous suicide attempt more than 30 years ago. -Medications: Continue Zoloft 100 mg daily for mood Continue Remeron 7.5 mg qHS for mood, sleep, and appetite -Motivational interviewing for substance use and discussed the deleterious effects of cannabis on mental health -Communicated plan to patient's nurse -Patient is cleared psychiatrically for discharge with recommendation for outpatient follow-up. -Please contact with any questions. Psychiatry will sign off. Thank you for this consult.
[2022-10-13 16:24] LABS: Glucose,Whole Blood 128 mg/dL (70-110)
[2022-10-13] MEDS: carvediloL 6.25 MG TAB PO SCH (17:09)
[2022-10-13] MEDS: amLODIPine 10 MG TAB PO SCH (17:09)
[2022-10-13] MEDS: SODIUM CHLORIDE 0.9% 1,000 ML IV SCH ×2 (19:05→19:06)
[2022-10-13 20:27] LABS: Glucose,Whole Blood 266 mg/dL (70-110)
[2022-10-13] MEDS: MIRTAZAPINE 15 MG TAB PO SCH (22:49)
[2022-10-13] MEDS: INSULIN DETEMIR (LEVEMIR) 100 UNIT/ML SYR SQ SCH (22:49)
[2022-10-14 06:15] LABS: Glucose,Whole Blood 118 mg/dL (70-110)
[2022-10-14] MEDS: carvediloL 6.25 MG TAB PO SCH (06:59)
[2022-10-14] MEDS: INSULIN ASPART (NovoLOG) 100 UNIT/ML VIAL SQ SCH ×4 (07:00→12:46)
[2022-10-14 09:19] VITALS: BP 129/81; PULSE 82; TEMP 97.8
[2022-10-14] MEDS: NICOTINE 21MG/24HR PATCH TRANSDERM SCH (09:20)
[2022-10-14] MEDS: SERTRALINE 100 MG TAB PO SCH (09:21)
[2022-10-14] MEDS: hydrOXYzine HCL 10 MG TAB PO SCH (09:21)
[2022-10-14] MEDS: FOLIC ACID 1 MG TAB PO SCH (09:22)
[2022-10-14] MEDS: ASPIRIN 81 MG PO SCH (09:22)
[2022-10-14] MEDS: amLODIPine 10 MG TAB PO SCH (09:22)
[2022-10-14] MEDS: HEPARIN SODIUM,PORCINE/PF 5,000 UNIT/0.5 ML SYRINGE SQ SCH (09:22)
[2022-10-14] MEDS: MULTIVITAMINS, THERA 1 EACH TAB PO SCH (09:22)
[2022-10-14 11:47] LABS: Glucose,Whole Blood 327 mg/dL (70-110)
--- NOTE | 2022-10-14 12:25 | P.DS ---
Providers Date of admission: 10/11/22 01:35 Expected date of discharge: 10/14/22 Attending physician: Kiana Salguero MD Consults: 10/11/22 01:33 Consult Physician Routine Consulting Provider: Arnoldo Franco Consult Reason/Comments: depression Do you want consulting provider notified?: Yes Primary care physician: Aaron Boyd MD Hospital Course: The patient is a 67-year-old male with a PMH of type II DM who was brought to the emergency room by the police after the patient was found sitting at the edge of the road. The patient reports that he recently lost his . He states that this is causing him and strain on him, and that he just does not feel like himself. He reports that he has not been taking his oral diabetes medications including metformin and her other medication that he was unable to name. Also states that he has not been taking care of himself. States that he fell earlier today, without head trauma or loss of consciousness and that he simply didn't wish to get up and walk again. He denied any additional complaints. He denied experiencing chest discomfort, shortness of breath, fever, chills, cough, nausea, vomiting, abdominal pain, diarrhea. Patient denied suicidal ideation. EKG revealed sinus rhythm at 91 bpm with borderline QRS duration and diffuse flattening of T waves. Laboratory evaluation was remarkable for sodium 132, pot assium 5.2, glucose 588, and anion gap 15. Patient was started on long-acting and short-acting insulin. His HbA1c was 13.9. Psychiatry was consulted and recommended inpatient psychiatric admission. Patient was medically cleared for transfer to inpatient psych. Unfortunately, patient was noted to be COVID-19 positive. Psychiatry was reconsulted include the patient for discharge. Patient be discharged home with outpatient psych follow-up. He is advised to follow-up with his PCP within 1-2 days of discharge. He is required to take NovoLog 5 units 3 times a day with meals along with Lantus 15 units daily. He is advised to check his blood sugars 4 times a day and follow-up with his PCP for further titration of medications. Nursing to do insulin teaching prior to discharge. Patient verbalized understanding of the plan. General: Disheveled male, non toxic, no distress, appears at stated age, overweight Derm: no unusual rashes/lesions, warm Head: atraumatic, normocephalic, symmetric Eyes: EOMI, no lid lag, anicteric sclera ENT: Nose and ears atraumatic Neck: No cervical lymphadenopathy, trachea midline, supple Mouth: no lip lesion, mucus membranes moist Cardiovascular: S1S2 reg, no murmur, no edema Lungs: CTA bilateral, no rhonchi, no rales, no accessory muscle use Ext: muscle strength 5 out of 5 in all 4 extremities grossly, no gross muscle atrophy, no contractures, Neuro: no gross focal neuro deficits Psych: Alert, oriented, appropriate affect Discharge diagnosis: Hyperglycemia with poorly controlled diabetes mellitus Major depressive disorder Patient Condition at Discharge: Stable Plan - Discharge Summary Discharge Rx Participant: No New Discharge Prescriptions: New carvediloL [Coreg] 6.25 mg PO BID-W/MEALS #60 tab amLODIPine [Norvasc] 10 mg PO DAILY #30 tab Alcohol Antiseptic Pads [Alcohol Swabs] 1 pad TOPICAL QID #120 pad Lancets 1 each MISCELLANE QID #120 each Insulin Glargine,Hum.rec.anlog [Lantus Solostar Pen] 15 units SQ DAILY #5 each Insulin Aspart [NovoLOG Flexpen] 5 units SQ AC-TID #5 each Pen Needle, Diabetic [Pen Needle] 1 each MC QID #120 each Mirtazapine [Remeron] 7.5 mg PO HS #30 tab Blood Sugar Diagnostic [Test Strips] 1 strip MISCELLANE QID #120 strip Continue Sertraline [Zoloft] 100 mg PO DAILY Ubidecarenone [Coenzyme Q10] 200 mg PO DAILY [place]-3/Dha/Epa/Fish Oil [Fish Oil 1,000 mg Softgel] 1 cap PO DAILY hydrOXYzine HCL [Atarax] 10 mg PO BID Multivitamins, Thera [Multivitamin (formulary)] 1 tab PO DAILY Folic Acid 1 mg PO DAILY Aspirin EC [Ecotrin Low Dose] 81 mg PO DAILY Discharge Medication List Aspirin EC [Ecotrin Low Dose] 81 mg PO DAILY 10/11/22 [History] Folic Acid 1 mg PO DAILY 10/11/22 [History] Multivitamins, Thera [Multivitamin (formulary)] 1 tab PO DAILY 10/11/22 [History] [place]-3/Dha/Epa/Fish Oil [Fish Oil 1,000 mg Softgel] 1 cap PO DAILY 10/11/22 [History] Sertraline [Zoloft] 100 mg PO DAILY 10/11/22 [History] Ubidecarenone [Coenzyme Q10] 200 mg PO DAILY 10/11/22 [History] hydrOXYzine HCL [Atarax] 10 mg PO BID 10/11/22 [History] Alcohol Antiseptic Pads [Alcohol Swabs] 1 pad TOPICAL QID #120 pad 10/14/22 [Rx] Blood Sugar Diagnostic [Test Strips] 1 strip MISCELLANE QID #120 strip 10/14/22 [Rx] Insulin Aspart [NovoLOG Flexpen] 5 units SQ AC-TID #5 each 10/14/22 [Rx] Insulin Glargine,Hum.rec.anlog [Lantus Solostar Pen] 15 units SQ DAILY #5 each 10/14/22 [Rx] Lancets 1 each MISCELLANE QID #120 each 10/14/22 [Rx] Mirtazapine [Remeron] 7.5 mg PO HS #30 tab 10/14/22 [Rx] Pen Needle, Diabetic [Pen Needle] 1 each MC QID #120 each 10/14/22 [Rx] amLODIPine [Norvasc] 10 mg PO DAILY #30 tab 10/14/22 [Rx] carvediloL [Coreg] 6.25 mg PO BID-W/MEALS #60 tab 10/14/22 [Rx] Follow up Appointment(s)/Referral(s): Aaron Boyd MD [Primary Care Provider] - 1-2 days (PLEASE CALL AND SCHEDULE LOUANN OINTMENT.) Patient Instructions/Handouts: Depression (DC), Diabetic Hyperglycemia (DC), COVID-19 (Coronavirus Disease 2019) (DC) Activity/Diet/Wound Care/Special Instructions: Follow up with [place] psychiatrist - Dr. Todd Valenzuela [phone] [place] is also setting up home care services with a nurse, physical therapy, and occupational therapy - if you do not hear from home care in the next couple of days contact Dr. Boyd Discharge/Stand Alone Forms: Community Resources, Outpatient Counseling Discharge Disposition: HOME SELF-CARE
== END 2022-10-14 15:26 | disposition home health service (06) | DRG 637 ==
LOC: EC 22:18 → 3SCARD 10-11 01:35
PROVIDERS: ADMIT Internal Medicine; ATTEND Internal Medicine
DX: E11.65 Type 2 diabetes mellitus with hyperglycemia (principal); U07.1 COVID-19; F33.1 Major depressive disorder, recurrent, moderate; R62.7 Adult failure to thrive; Z28.310 Unvaccinated for COVID-19; F10.11 Alcohol abuse, in remission; I10 Essential (primary) hypertension; F41.9 Anxiety disorder, unspecified; F12.10 Cannabis abuse, uncomplicated; F17.210 Nicotine dependence, cigarettes, uncomplicated; Z71.6 Tobacco abuse counseling; Z91.52 Personal history of nonsuicidal self-harm; Z88.8 Allergy status to other drugs, medicaments and biological substances; Z91.013 Allergy to seafood; Z86.14 Personal history of Methicillin resistant Staphylococcus aureus infection
CPT/HCPCS: 36415; 80048; 80053; 80143; 80179; 80306; 80320; 83036; 83690; 83735; 84100; 84484; 85025; 87635; 93005; 96361; 96374; 96375; 99285

== ENCOUNTER → 2023-02-09 | Outpatient (CLI) | payer OTHER ==
--- NOTE | 2023-02-09 15:16 | CTL ---
EXAMINATION TYPE: CT Low Dose Lung DATE OF EXAM ORDERED: 02/09/2023 COMPARISON: None HISTORY: . Low Dose CT Lung Screening CT DLP: 98.[address] CTDI: 2.4 mGy IV CONTRAST USED: None. SCREENING VISIT: First visit COMPARISON: None. TECHNIQUE: Low dose computed tomography scan was performed through the chest at 1 millimeter thick se ctions and reconstructed images in the coronal plane at [address] DIAGNOSTIC QUALITY: Satisfactory FINDINGS: LUNG NODULES: Not presentLeft lung: no nodules identified.Right lung: no nodules identified. LUNGS: COPD: Severity: Mild Fibrosis: Severity: Mild Lymph nodes: None Other findings: None RIGHT PLEURAL SPACE: Effusion: None Calcification: None Thickening: None Pneumothorax: None LEFT PLEURAL SPACE: Effusion: None Calcification: None Thickening: None Pneumothorax: None HEART: Heart Size: Mildly enlarged Coronary calcification: Moderate Pericardial effusion: None OTHER FINDINGS: Upper abdomen: Calcified gallstone noted. Bony thorax: Degenerative changes Supraclavicular region: No significant abnormalityOther: No significant abnormalityI IMPRESSION: No suspicious nodularity appreciated. FOLLOW UP CT CHEST RECOMMENDATION: Follow-up screening in one year CT LUNG RAD: LUNG RAD CATEGORY 1 negative
== END | disposition home or self-care (01) ==
LOC: RADUSWWP 13:32
PROVIDERS: ATTEND Family Medicine
DX: Z12.2 Encounter for screening for malignant neoplasm of respiratory organs (principal); F17.210 Nicotine dependence, cigarettes, uncomplicated; I73.9 Peripheral vascular disease, unspecified
CPT/HCPCS: 71271; 93923

== ENCOUNTER 2023-06-18 06:53 | Day surgery (SDC) | payer OTHER ==
[~2023-06-18 06:53] MED LIST: LACTATED RINGERS 1,000 ML IV SCH; LIDOCAINE 1% (10MG/ML) FOR IV START INTRADERMA PRN
[2023-06-18 07:27] VITALS: RESP 16; TEMP 97
[2023-06-18 07:32] LABS: Glucose,Whole Blood 153 mg/dL (70-110)
[2023-06-18] MEDS ORDERED: PROPOFOL 10 MG/ML 20 ML VIAL IV ONE (08:03)
--- NOTE | 2023-06-18 08:25 | P.PCN ---
Date of Procedure: 06/18/23 Procedure(s) Performed: BRIEF HISTORY: Patient is a 67-year-old pleasant white male scheduled for an elective colonoscopy as a part of evaluation of prior history of colon polyps. PROCEDURE PERFORMED: Colonoscopy with snare polypectomy. PREOPERATIVE DIAGNOSIS: History of colon polyps. IV sedation per Anesthesia. PROCEDURE: After informed consent was obtained, the patient, was brought into the endoscopy unit. IV sedation was administered by Anesthesia under continuous monitoring. Digital rectal examination was normal. Initially the Olympus CF-160 flexible video colonoscope was then inserted in the rectum, gradually advanced into the cecum without any difficulty. Careful examination was performed as the scope was gradually being withdrawn. Ileocecal valve and the appendiceal orifice were visualized and appeared normal. Prep was excellent. Mucosa of the cecum, appeared normal. In the setting colon there was a 6 minute a polyp removed by snare polypectomy. Rest of the ascending colon, transverse colon, descending colon, appeared normal. In the sigmoid there was a 5 mm and 7 minute a polyp removed by snare polypectomy. In the rectum there was a 3 mm polyp removed by snare polypectomy. Rest of the sigmoid colon, and rectum appeared normal. Retroflexion was performed in the rectum and no lesions were seen. The patient tolerated the procedure well. IMPRESSION: 6 mm ascending colon polyp status post polypectomy 5 mm and 7 mm sigmoid: Polyp status post polypectomy 3 mm rectal polyp status post polypectomy RECOMMENDATIONS: Findings of this examination were discussed with the patient as well as his family. He was advised to follow with the biopsy results. If the biopsy result adenoma he can have a repeat colonoscopy in 3 years..
[2023-06-18 09:06] VITALS: BP 165/73; PULSE 63
== END 2023-06-18 09:00 | disposition home or self-care (01) ==
LOC: ORWHC2ENDO 06:53
PROVIDERS: ATTEND Internal Medicine Gastroenterology
DX: Z12.11 Encounter for screening for malignant neoplasm of colon (principal); D12.2 Benign neoplasm of ascending colon; D12.5 Benign neoplasm of sigmoid colon; D12.8 Benign neoplasm of rectum; I25.2 Old myocardial infarction; I25.10 Atherosclerotic heart disease of native coronary artery without angina pectoris; I10 Essential (primary) hypertension; E78.5 Hyperlipidemia, unspecified; F17.200 Nicotine dependence, unspecified, uncomplicated; Z91.013 Allergy to seafood; Z91.041 Radiographic dye allergy status; Z79.82 Long term (current) use of aspirin; Z86.010 Personal history of colon polyps; Z79.4 Long term (current) use of insulin; Z79.899 Other long term (current) drug therapy; Z95.1 Presence of aortocoronary bypass graft
CPT/HCPCS: 88305; 45385; J2704

== ENCOUNTER → 2023-06-30 | Outpatient (CLI) | payer OTHER ==
[2023-06-30 20:43] LABS: ALT 13 U/L (10-49); AST 14 U/L (14-35); Albumin 4.3 d/dL (3.8-4.9); Albumin/Globulin Ratio 1.87 Ratio (1.60-3.17); Alkaline Phosphatase 101 U/L (41-126); BUN/Creat Ratio 22.22 Ratio (12.00-20.00); C-Peptide 4.34 ng/mL (0.81-3.85); Calcium 9.4 mg/dL (8.7-10.3); Carbon Dioxide 21.8 mmol/L (21.6-31.8); Chloride 102 mmol/L (96-109); Chol/HDL Ratio 7.69 Ratio; Globulin 2.3 d/dL (1.6-3.3); Glucose 177 mg/dL (70-110); LDL Cholesterol,Calculated 189.3 mg/dL (0.0-131.0); Potassium 4.5 mmol/L (3.5-5.5); Sodium 137 mmol/L (135-145); Total Bilirubin 0.5 mg/dL (0.3-1.2); Total Protein 6.6 d/dL (6.2-8.2)
== END | disposition home or self-care (01) ==
LOC: LABWHC1 11:33
PROVIDERS: ATTEND Internal Medicine Endocrinology, Diabetes & Metabolism
DX: E11.65 Type 2 diabetes mellitus with hyperglycemia (principal)
CPT/HCPCS: 36415; 80053; 80061; 82043; 82570; 83036; 84443; 84681

== ENCOUNTER → 2023-09-29 | Outpatient (CLI) | payer OTHER ==
[2023-09-29 15:12] LABS: ALT 16 U/L (10-49); AST 17 U/L (14-35); Albumin 4.4 g/dL (3.8-4.9); Albumin/Globulin Ratio 1.91 Ratio (1.60-3.17); Alkaline Phosphatase 99 U/L (41-126); Blood Urea Nitrogen 18.4 mg/dL (9.0-27.0); Calcium 9.8 mg/dL (8.7-10.3); Carbon Dioxide 26.2 mmol/L (21.6-31.8); Chloride 104 mmol/L (96-109); Globulin 2.3 g/dL (1.6-3.3); Glucose 144 mg/dL (70-110); Potassium 4.7 mmol/L (3.5-5.5); Sodium 142 mmol/L (135-145); Total Bilirubin 0.5 mg/dL (0.3-1.2); Total Protein 6.7 g/dL (6.2-8.2)
== END | disposition home or self-care (01) ==
LOC: LABWHC1 10:41
PROVIDERS: ATTEND Internal Medicine Endocrinology, Diabetes & Metabolism
DX: E11.65 Type 2 diabetes mellitus with hyperglycemia (principal)
CPT/HCPCS: 36415; 80053; 84681

== ENCOUNTER 2023-10-19 13:55 | Inpatient (IN) | payer OTHER, MEDICARE ==
[2023-10-19 14:24] LABS: Glucose,Whole Blood 201 mg/dL (70-110)
--- NOTE | 2023-10-19 14:50 | ED ---
General Adult HPI - General Chief complaint: Altered Mental Status Stated complaint: Altered Time Seen by Provider: 10/19/23 14:00 Source: family, RN notes reviewed Mode of arrival: EMS Limitations: altered mental status - History of Present Illness Initial comments: Patient is a 68-year-old male presenting to the emergency department by EMS. Patient was found on the floor by brother covered in stool and urine. Patient last known well was 1 week ago. Brother adds that patient does get Meals on Wheels and is supposed to call if patient does not respond. Therefore he feels patient was likely on the floor no more than 20 hours. Patient is unable to verbalize any complaints or provide any history. Family adds that patient does have history of aneurysms - Related Data Home Medications Medication Instructions Recorded Confirmed Aspirin EC [Ecotrin Low Dose] 81 mg PO QAM 10/11/22 06/15/23 Folic Acid 1 mg PO DAILY 10/11/22 06/18/23 Multivitamins, Thera [Multivitamin 1 tab PO QAM 10/11/22 06/15/23 (formulary)] [place]-3/Dha/Epa/Fish Oil [Fish Oil 1 cap PO QAM 10/11/22 06/15/23 1,000 mg Softgel] Sertraline [Zoloft] 100 mg PO QAM 10/11/22 06/18/23 Ubidecarenone [Coenzyme Q10] 200 mg PO HS 10/11/22 06/18/23 hydrOXYzine HCL [Atarax] 10 mg PO BID 10/11/22 06/18/23 Insulin Aspart [NovoLOG Flexpen] 10 units SQ AC-TID 06/15/23 06/18/23 Insulin Glargine,Hum.rec.anlog 20 units SQ QAM 06/15/23 06/18/23 [Lantus Solostar Pen] amLODIPine [Norvasc] 10 mg PO QAM 06/15/23 06/18/23 Previous Rx's Medication Instructions Recorded carvediloL [Coreg] 6.25 mg PO BID-W/MEALS #60 tab 10/14/22 Allergies Allergy/AdvReac Type Severity Reaction Status Date / Time iodine Allergy Severe Anaphylaxis Verified 10/19/23 14:13 shellfish derived [Shellfish] Allergy Severe Anaphylaxis Verified 10/19/23 14:13 Review of Systems ROS Statement: Those systems with pertinent positive or pertinent negative responses have been documented in the HPI. ROS Other: All systems not noted in ROS Statement are negative. Limitations: ROS unobtainable due to patients medical condition Past Medical History Past Medical History: Coronary Artery Disease (CAD), Chest Pain / Angina, Heart Failure, COPD, CVA/TIA, Diabetes Mellitus, Hypertension, Myocardial Infarction (NH), Sleep Apnea/CPAP/BIPAP Additional Past Medical History / Comment(s): Routine colonoscopy, past polyp, IDDM type II, TIA, sleep apnea- has cpap at home but doesn't wear. 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 Last Myocardial Infarction Date:: unknown-about 1999 History of Any Multi-Drug Resistant Organisms: MRSA Date of last positivie culture/infection: 2019 MDRO Source:: chest Past Surgical History: Coronary Bypass/CABG, Heart Catheterization Additional Past Surgical History / Comment(s): CABG 4 vessel, vasectomy Past Anesthesia/Blood Transfusion Reactions: No Reported Reaction Past Psychological History: Anxiety, Depression Smoking Status: Current every day smoker Past Alcohol Use History: Occasional Past Drug Use History: Marijuana - Past Family History Father Family Medical History: COPD General Exam Limitations: altered mental status General appearance: lethargic Head exam: Present: atraumatic Eye exam: Present: normal appearance, PERRL, other ( does not follow for eye movement) Neck exam: Present: normal inspection. Absent: tenderness Respiratory exam: Present: normal lung sounds bilaterally Cardiovascular Exam: Present: tachycardia GI/Abdominal exam: Present: soft. Absent: tenderness Extremities exam: Present: normal inspection Neurological exam: Present: altered Expanded Neurological exam: Present: protecting the airway Cranial nerves: Facial Palsy with Forehead Movement: Abnormal Right Motor strength exam: RUE: 2/1, LUE: 4, RLE: 2/1, LLE: 4 Eye Response: (3) open to voice Motor Response: (4) withdraws to pain Verbal Response: incomprehensible sounds Skin exam: Present: normal color Course Vital Signs 10/19/23 10/19/23 10/19/23 14:08 14:40 14:45 Temperature 98.4 F Pulse Rate 101 H 88 90 Respiratory 22 16 18 Rate Blood Pressure 183/138 187/97 190/92 O2 Sat by Pulse 100 98 98 Oximetry 10/19/23 10/19/23 10/19/23 15:00 15:15 16:07 Temperature Pulse Rate 88 87 93 Respiratory 18 16 18 Rate Blood Pressure 193/96 161/111 141/99 O2 Sat by Pulse 99 98 96 Oximetry 10/19/23 16:30 Temperature Pulse Rate 86 Respiratory 16 Rate Blood Pressure 168/93 O2 Sat by Pulse 96 Oximetry - Reevaluation(s) Reevaluation #1: 10/19/23 15:07 NIH is 22 Case discussed with John with Dr. hughes who will review films and call back. EKG Findings - EKG Results: EKG: interpreted by RANDALL (Nonspecific T waves), sinus rhythm, normal axis, normal QRS EKG shows: tachycardia Medical Decision Making - Medical Decision Making Was pt. sent in by a medical professional or institution (, PA, LITIGATION ATTORNEY, urgent care, hospital, or halfway...) When possible be specific @ -[No] Did you speak to anyone other than the patient for history (EMS, parent, family, police, friend...)? What history was obtained from this source @ -Brother is present and provides all history as patient is nonverbal Did you review nursing and triage notes (agree or disagree)? Why? @ -[I reviewed and agree with nursing and triage notes] Were old charts reviewed (outside hosp., previous admission, EMS record, old EKG, old radiological studies, urgent care reports/EKG's, halfway records)? Report findings @ -Previous chest x-ray reviewed Differential Diagnosis (chest pain, altered mental status, abdominal pain women, abdominal pain men, vaginal bleeding, weakness, fever, dyspnea, syncope, headache, dizziness, GI bleed, back pain, seizure, CVA, palpatations, mental health, musculoskeletal)? @ -Differential Altered Mental Status: Hypoglycemia, DKA, hypercapnia, ETOH, overdose, CO poisoning, trauma, myxedema coma, HTN encephalopathy, infection, encephalitis, psychosis, intercranial hemorrhage, hepatic encephalopathy, meningitis, CVA, this is not meant to be an all-inclusive list EKG interpreted by me (3pts min.). @ -[As above] X-rays interpreted by me (1pt min.). @ -Chest x-ray has mild generalized hazy appearance CT interpreted by me (1pt min.). @ -CT scan of the brain does show concern for possible acute/subacute stroke left MCA territory U/S interpreted by me (1pt. min.). @ -[None done] What testing was considered but not performed or refused? (CT, X-rays, U/S, labs)? Why? @ -[None] What meds were considered but not given or refused? Why? @ -Consider tPA however last known well is greater than 4.5 hours, risks felt to outweigh the benefit Did you discuss the management of the patient with other professionals (professionals i.e. DrEvelio, PA, LITIGATION ATTORNEY, lab, RT, psych nurse, social work coordinator, field support engineer, te acher, conservation enforcement officer, shelter case manager)? Give summary @ -[Case was discussed with John with Dr. Wilkins who recommends admission here with aspirin and Lipitor. Case was later discussed with Dr. Torres who did review CTA and feels patient will not benefit from any acute management regarding this. If patient does have quality lifestyle in the future they can consider outpatient management. Case also discussed with Dr. Barlow, who will admit this is a [facility].] Was smoking cessation discussed for >3mins.? @ -[No] Was critical care preformed (if so, how long)? @ -33 minutes critical care time Were there social determinants of health that impacted care today? How? (Homelessness, low income, unemployed, alcoholism, drug addiction, transportation, low edu. Level, literacy, decrease access to med. care, penitentiary, rehab)? @ -[No] Was there de-escalation of care discussed even if they declined (Discuss DNR or withdrawal of care, Hospice)? DNR status @ -[No] What co-morbidities impacted this encounter? (DM, HTN, Smoking, COPD, CAD, Cancer, CVA, ARF, Chemo, Hep., AIDS, mental health diagnosis, sleep apnea, morbid obesity)? @ -[None] Was patient admitted / discharged? Hospital course, mention meds given and route, prescriptions, significant lab abnormalities, going to OR and other pertinent info. @ -Patient reevaluated and unchanged. CT angiogram does show evidence of possi ble occlusion and aneurysm. Patient will be admitted with neurology consult. Admission orders written. Undiagnosed new problem with uncertain prognosis? @ -[No] Drug Therapy requiring intensive monitoring for toxicity (Heparin, Nitro, Insulin, Cardizem)? @ -[No] Were any procedures done? @ -[No] Diagnosis/symptom? @ -CVA Acute, or Chronic, or Acute on Chronic? @ -Acute Uncomplicated (without systemic symptoms) or Complicated (systemic symptoms)? @ -[default] Side effects of treatment? @ -[No] Exacerbation, Progression, or Severe Exacerbation? @ -[No] Poses a threat to life or bodily function? How? (Chest pain, USA, NH, pneumonia, PE, COPD, DKA, ARF, appy, cholecystitis, CVA, Diverticulitis, Homicidal, Suicidal, threat to staff... and all critical care pts) @ -High NIH poses a threat to life and bodily function with possible permanent disability - Lab Data Result diagrams: 10/19/23 14:45 10/19/23 14:45 Lab Results 10/19/23 10/19/23 10/19/23 Range/Units 14:23 14:45 14:45 WBC 12.1 H (3.8-10.6) k/uL RBC 5.36 (4.30-5.90) m/uL Hgb 16.9 (13.0-17.5) gm/dL Hct 48.9 (39.0-53.0) % MCV 91.2 (80.0-100.0) fL MCH 31.5 (25.0-35.0) pg MCHC 34.5 (31.0-37.0) g/dL RDW 13.2 (11.5-15.5) % Plt Count 214 (150-450) k/uL MPV 9.8 Neutrophils % 78 % Lymphocytes % 15 % Monocytes % 6 % Eosinophils % 0 % Basophils % 0 % Neutrophils # 9.4 H (1.3-7.7) k/uL Lymphocytes # 1.8 (1.0-4.8) k/uL Monocytes # 0.7 (0-1.0) k/uL Eosinophils # 0.0 (0-0.7) k/uL Basophils # 0.0 (0-0.2) k/uL PT 11.2 (10.0-12.5) sec INR 1.0 (<1.2) APTT 30.9 H (22.0-30.0) sec Sodium (137-145) mmol/L Potassium (3.5-5.1) mmol/L Chloride (98-107) mmol/L Carbon Dioxide (22-30) mmol/L Anion Gap mmol/L BUN (9-20) mg/dL Creatinine (0.66-1.25) mg/dL Est GFR (CKD-EPI)AfAm (>60 ml/min/1.73 sqM) Est GFR (CKD-EPI)NonAf (>60 ml/min/1.73 sqM) Glucose (74-99) mg/dL POC Glucose (mg/dL) 201 H (70-110) mg/dL POC Glu Activities Attendant ID Jameson Rosa Calcium (8.4-10.2) mg/dL Total Bilirubin (0.2-1.3) mg/dL AST (17-59) U/L ALT (4-49) U/L Alkaline Phosphatase (38-126) U/L Creatine Kinase (55-170) U/L Total Protein (6.3-8.2) g/dL Albumin (3.5-5.0) g/dL 10/19/23 Range/Units 14:45 WBC (3.8-10.6) k/uL RBC (4.30-5.90) m/uL Hgb (13.0-17.5) gm/dL Hct (39.0-53.0) % MCV (80.0-100.0) fL MCH (25.0-35.0) pg MCHC (31.0-37.0) g/dL RDW (11.5-15.5) % Plt Count (150-450) k/uL MPV Neutrophils % % Lymphocytes % % Monocytes % % Eosinophils % % Basophils % % Neutrophils # (1.3-7.7) k/uL Lymphocytes # (1.0-4.8) k/uL Monocytes # (0-1.0) k/uL Eosinophils # (0-0.7) k/uL Basophils # (0-0.2) k/uL PT (10.0-12.5) sec INR (<1.2) APTT (22.0-30.0) sec Sodium 138 (137-145) mmol/L Potassium 4.8 (3.5-5.1) mmol/L Chloride 105 (98-107) mmol/L Carbon Dioxide 19 L (22-30) mmol/L Anion Gap 14 mmol/L BUN 14 (9-20) mg/dL Creatinine 0.70 (0.66-1.25) mg/dL Est GFR (CKD-EPI)AfAm >90 (>60 ml/min/1.73 sqM) Est GFR (CKD-EPI)NonAf >90 (>60 ml/min/1.73 sqM) Glucose 194 H (74-99) mg/dL POC Glucose (mg/dL) (70-110) mg/dL POC Glu Activities Attendant ID Calcium 9.8 (8.4-10.2) mg/dL Total Bilirubin 1.2 (0.2-1.3) mg/dL AST 36 (17-59) U/L ALT 24 (4-49) U/L Alkaline Phosphatase 122 (38-126) U/L Creatine Kinase 475 H (55-170) U/L Total Protein 8.3 H (6.3-8.2) g/dL Albumin 5.1 H (3.5-5.0) g/dL Disposition Clinical Impression: CVA (cerebral vascular accident) Disposition: ADMITTED IP TO THIS HOSP Condition: Serious Is patient prescribed a controlled substance at d/c from ED?: No Referrals: [facility],Clinic [Primary Care Provider] - 1-2 days Time of Disposition: 17:12
[2023-10-19] MEDS: FAMOTIDINE 20 MG/2 ML VIAL IV STA (14:58)
[2023-10-19] MEDS: methylPREDNISolone SOD SUCCI 125 MG/2 ML VIAL IV STA (14:58)
[2023-10-19] MEDS: diphenhydrAMINE 50 MG/ML 1 ML VIAL IVP STA (14:58)
[2023-10-19 15:23] LABS: Basophils % (A) 0 %; Eosinophils % (A) 0 %; HCT 48.9 % (39.0-53.0); HGB 16.9 gm/dL (13.0-17.5); Lymphocytes # (A) 1.8 k/uL (1.0-4.8); Lymphocytes % (A) 15 %; MCH 31.5 pg (25.0-35.0); MCHC 34.5 g/dL (31.0-37.0); MCV 91.2 fL (80.0-100.0); Mean Platelet Volume 9.8; Monocytes # (A) 0.7 k/uL (0-1.0); Monocytes % (A) 6 %; Neutrophils # (A) 9.4 k/uL (1.3-7.7); Neutrophils % (A) 78 %; Platelet Count 214 k/uL (150-450); RBC 5.36 m/uL (4.30-5.90); RDW 13.2 % (11.5-15.5); WBC 12.1 k/uL (3.8-10.6)
--- NOTE | 2023-10-19 15:23 | CT ---
EXAMINATION TYPE: CT brain wo con CT DLP: 1246.6 mGycm, Automated exposure control for dose reduction was used. DATE OF EXAM: 10/19/2023 3:06 PM COMPARISON: None. CLINICAL INDICATION:Male, 68 years old with history of Neuro deficit, acute, stroke suspected, Code s troke. TECHNIQUE: Brain: Axial CT images of the brain were obtained with coronal and sagittal reformats created and rev iewed. Contrast used: None. Oral contrast used: None. FINDINGS: Brain: Extra-axial spaces: No abnormal extra-axial fluid collections. Ventricular system: Dilatation in proportion to cerebral atrophy. Cerebral parenchyma: Loss of franks-white matter differentiation involving the left MCA territory predo minantly in the left parietal superior posterior temporal and occipital lobes. . No acute intraparenc hymal hemorrhage or mass effect. The remainder of the franks-white junctions are well differentiated. Scattered hypoattenuating areas are seen within the white matter. Cerebellum: Unremarkable. Mass effect: No evidence of midline shift. Intracranial vasculature: unremarkable Soft tissues: Normal. Calvarium/osseous structures: No depressed skull fracture. Paranasal sinuses and mastoid air cells: Mild scattered paranasal sinus disease. Visualized orbits: Bilateral aphakia IMPRESSION: 1. Acute/subacute CVA of the left MCA territory. 2. Nonspecific white matter changes, likely secondary to chronic small vessel ischemic disease. 3. Findings communicated to Dr. Hakeem Talbert DO on 10/19/2023 3:[address] Temo Frederick.
[2023-10-19 15:35] LABS: ALT 24 U/L (4-49); AST 36 U/L (17-59); African American GFR (CKD) >90 (>60 ml/min/1.73 sqM); Albumin 5.1 g/dL (3.5-5.0); Alkaline Phosphatase 122 U/L (38-126); Anion Gap 14 mmol/L; Blood Urea Nitrogen 14 mg/dL (9-20); Calcium 9.8 mg/dL (8.4-10.2); Carbon Dioxide 19 mmol/L (22-30); Chloride 105 mmol/L (98-107); Creatine Kinase 475 U/L (55-170); Glucose 194 mg/dL (74-99); Non-African American GFR(CKD) >90 (>60 ml/min/1.73 sqM); Potassium 4.8 mmol/L (3.5-5.1); Sodium 138 mmol/L (137-145); Total Bilirubin 1.2 mg/dL (0.2-1.3); Total Protein 8.3 g/dL (6.3-8.2)
[2023-10-19 15:38] LABS: Partial Thromboplastin Time 30.9 sec (22.0-30.0); Prothrombin Time 11.2 sec (10.0-12.5)
--- NOTE | 2023-10-19 15:44 | CT ---
EXAMINATION TYPE: CT angio head neck CT DLP: 270 mGycm, Automated exposure control for dose reduction was used. DATE OF EXAM: 10/19/2023 3:19 PM COMPARISON: CT head same day. CLINICAL INDICATION:Male, 68 years old with history of Neuro deficit, acute, stroke suspected; LOCATED WITHIN [facility], TECHNIQUE: Axially acquired helical CT angiogram of the head and neck was obtained with contrast. Axi al images are supplemented with 3D reconstructions and MIP images which were post-processed at an in dependent workstation. NASCET criteria used. Contrast used: 65 cc of Isovue-370 Oral contrast used: None. FINDINGS: CTA HEAD: No evidence of acute intracranial hemorrhage, mass effect, or midline shift. The ventricles, sulci, a nd cisterns are unremarkable. There remains loss of franks-white differentiation the left MCA territory more posteriorly in the parietal region. Abrupt cut off of the left M3 segment series 408 image 66. The visualized portions of the internal carotid arteries, middle cerebral arteries, anterior cerebral arteries, and posterior cerebral arteries are patent. There is saccular aneurysmal dilation of the r ight internal carotid artery near its bifurcation measuring 8 x 8 mm. Paucity of vessels within the a cindi of suspected acute ischemia. The basilar and intracranial vertebral arteries are patent. CTA NECK: Right Carotid System: The common carotid and external carotid arteries are patent. There is less than 25% stenosis at the c arotid bifurcation secondary to calcified/noncalcified plaque. The rest of the internal carotid arter y is patent. Left Carotid System: The common carotid and external carotid arteries are patent. There is less than 50% stenosis at the c arotid bifurcation secondary to calcified/noncalcified plaque. The rest of the internal carotid arter y is patent. There is occlusion of the left vertebral artery as it exits C2 and is nonopacified at the level of th e C1 vertebrae. there is reconstitution in the intracranial portion series 411 image 121. There is a three-vessel aortic arch. The origins of the great vessels are patent. No evidence of hemo dynamically significant stenosis. Upper thorax: Mild emphysema changes in the lung apices. IMPRESSION: 1. Abrupt cut off of the left M3 segment of the MCA suggested on sagittal imaging.. Mild motion bozena fact is present. 2. 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 3. Occlusion of the left vertebral artery at the level of C2 and extending into the intracranial por tion with reconstitution. 4. No evidence of dissection occlusion of the of the cervical internal carotid arteries.
--- NOTE | 2023-10-19 16:33 | XR ---
EXAMINATION TYPE: XR chest 2V DATE OF EXAM: 10/19/2023 4:28 PM CLINICAL INDICATION:Male, 68 years old with history of altered mental status; [facility] COMPARISON: Chest radiographs from 12/17/2019. TECHNIQUE: XR chest 2V Frontal and lateral views of the chest. FINDINGS: Lungs/Pleura: There is no evidence of pleural effusion, focal consolidation, or pneumothorax. Pulmonary vascularity: Pulmonary vascular congestion. Heart/mediastinum: Cardiomediastinal silhouette is enlarged and stable. Musculoskeletal: No acute osseous pathology. Other findings: None Lines/Tubes: IMPRESSION: Low lung volumes with a generalized hazy appearance which could represent atelectasis versus pulmonar y edema correlate with serum BNP.
[2023-10-19] MEDS: ASPIRIN 325 MG TAB PO STA (17:36)
[2023-10-19] MEDS ORDERED: DEXTROSE 50% SYRINGE 50 ML IVP PRN ×2 (17:44)
--- NOTE | 2023-10-19 17:45 | P.HPIM ---
History of Present Illness H&P Date: 10/19/23 Patient is a 68-year-old male with history of CAD status post CABG, carotid artery disease, peripheral arterial disease, type 2 diabetes, hypertension, nicotine dependence, dyslipidemia presenting with unresponsiveness. Patient uses [employer]. Patient's brother is at bedside to provide the history. He is also his brother 1 week ago when he was doing well. He claims that he has Me[employer] Whe[employer], and he has to open the door in order to receive the food. He last received food yesterday at 4 PM, likely the last well-known. Today when he went to see patient to take him to his doctor's appointment, he was laying on the floor, not really responding to any of his questions, still moving his left side of the body. He then decided to bring him to the hospital. Patient continues to smoke, brother is unsure whether he still drinks alcohol, or take any illicit drugs. In the ED, temperature was 98.4, pulse 101, respiratory rate 22, blood pressure 183/138, saturating at 100% on room air. WBC 12.1, hemoglobin 16.9, platelet 214, sodium 138, potassium 4.8, bicarb 19, creatinine 0.7, glucose 194, CK4 75. Brain CT shows acute subacute CVA of the left MCA territory, nonspecific white m atter changes, likely secondary to chronic small vessel ischemic disease CT angiogram of of head and neck shows abrupt cut off of the left M3 segment of the MCA is suggested on the sagittal imaging, mild motion artifact, saccular aneurysm of the right internal carotid artery near its bifurcation measuring 0.8 x 8.8 cm, occlusion of left vertebral artery at the level of C2 and extending into the intracranial portion with reconstitution, no dissection. EKG independently interpreted, shows sinus tachycardia chest x-ray independently interpreted, low lung volumes, no clear opacities. No pleural effusion. Patient being admitted for acute/subacute stroke. Pertinent positives and negatives as discussed in HPI, a complete review of systems was performed and all other systems are negative. Patient seen and examined at bedside. Vital signs reviewed General: nontoxic, no distress, appears at stated age Derm: warm, dry Head: atraumatic, normocephalic, symmetric Eyes: EOMI, no lid lag, anicteric sclera, pupils equal round reactive to light ENT: Nose and ears atraumatic Neck: No thyromegaly, supple Mouth: no lip lesion, mucus membranes moist Cardiovascular: S1S2 reg, systolic murmur, no edema Lungs: clear to auscultation bilateral, no rhonchi, no rales, no wheeze, no accessory muscle use Abdominal: soft, nontender to palpation, no guarding, no appreciable organomegaly Ext: Right hemiparesis Neuro: Right-sided facial droop, nonverbal Psych: Alert, not following commands Assessment/Plan: Active: Acute/subacute left MCA stroke, likely embolic Left vertebral artery occlusion 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 Leukocytosis, reactive Mild rhabdomyolysis Anion gap metabolic acidosis Type 2 diabetes with hyperglycemia Hypertension Dyslipidemia -On aspirin 81 mg, atorvastatin 80 mg -Neurology consulted -Echocardiogram ordered -Continue normal saline 100 cc an hour -Avoid hypotension, permissive hypertension for 24 to 48 hours -Repeat BMP tomorrow -Started on sliding scale insulin -PT/OT/speech therapy -Spoke with brother with regards to goals of care, if patient unable to swallow, we will need to revisit goals of care Chronic: History of CAD Carotid artery disease Peripheral arterial disease The patient is admitted with an anticipated greater than 2 midnight stay as inpatient status for evaluation of stroke. Surrogate decision-maker: Has 2 kids CODE STATUS: Full code DVT prophylaxis: SCDs Anticipated discharge date: Pending clinical course Anticipated discharge place: Pending clinical course A total of 55 minutes was spent on the care of this complex patient more than 50% of the time was spent in counseling and care coordination. Past Medical History Past Medical History: Coronary Artery Disease (CAD), Chest Pain / Angina, Heart Failure, COPD, CVA/TIA, Diabetes Mellitus, Hypertension, Myocardial Infarction (HI), Sleep Apnea/CPAP/BIPAP Additional Past Medical History / Comment(s): Routine colonoscopy, past polyp, IDDM type II, TIA, sleep apnea- has cpap at home but doesn't wear. 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 Last Myocardial Infarction Date:: unknown-about 1999 History of Any Multi-Drug Resistant Organisms: MRSA Date of last positivie culture/infection: 2019 MDRO Source:: chest Past Surgical History: Coronary Bypass/CABG, Heart Catheterization Additional Past Surgical History / Comment(s): CABG 4 vessel, vasectomy Past Anesthesia/Blood Transfusion Reactions: No Reported Reaction Past Psychological History: Anxiety, Depression Smoking Status: Current every day smoker Past Alcohol Use History: Occasional Past Drug Use History: Marijuana - Past Family History Father Family Medical History: COPD Medications and Allergies Home Medications Medication Instructions Recorded Confirmed Type Aspirin EC [Ecotrin Low Dose] 81 mg PO QAM 10/11/22 06/15/23 History Folic Acid 1 mg PO DAILY 10/11/22 06/18/23 History Multivitamins, Thera [Multivitamin 1 tab PO QAM 10/11/22 06/15/23 History (formulary)] [place]-3/Dha/Epa/Fish Oil [Fish Oil 1 cap PO QAM 10/11/22 06/15/23 History 1,000 mg Softgel] Sertraline [Zoloft] 100 mg PO QAM 10/11/22 06/18/23 History Ubidecarenone [Coenzyme Q10] 200 mg PO HS 10/11/22 06/18/23 History hydrOXYzine HCL [Atarax] 10 mg PO BID 10/11/22 06/18/23 History carvediloL [Coreg] 6.25 mg PO BID-W/MEALS #60 tab 10/14/22 06/18/23 Rx Insulin Aspart [NovoLOG Flexpen] 10 units SQ AC-TID 06/15/23 06/18/23 History Insulin Glargine,Hum.rec.anlog 20 units SQ QAM 06/15/23 06/18/23 History [Lantus Solostar Pen] amLODIPine [Norvasc] 10 mg PO QAM 06/15/23 06/18/23 History Allergies Allergy/AdvReac Type Severity Reaction Status Date / Time iodine Allergy Severe Anaphylaxis Verified 10/19/23 14:13 shellfish derived [Shellfish] Allergy Severe Anaphylaxis Verified 10/19/23 14:13 Physical Exam Vitals: Vital Signs Temp Pulse Resp BP Pulse Ox 10/19/23 16:30 86 16 168/93 96 10/19/23 16:07 93 18 141/99 96 10/19/23 15:15 87 16 161/111 98 10/19/23 15:00 88 18 193/96 99 10/19/23 14:45 90 18 190/92 98 10/19/23 14:40 88 16 187/97 98 10/19/23 14:08 98.4 F 101 H 22 183/138 100 Intake and Output 10/19/23 10/19/23 10/19/23 06:59 14:59 22:59 Other: Weight 87.362 kg Results CBC & Chem 7: 10/19/23 14:45 10/19/23 14:45 Labs: Abnormal Lab Results - Last 24 Hours (Table) 10/19/23 10/19/23 10/19/23 Range/Units 14:23 14:45 14:45 WBC 12.1 H (3.8-10.6) k/uL Neutrophils # 9.4 H (1.3-7.7) k/uL APTT 30.9 H (22.0-30.0) sec Carbon Dioxide (22-30) mmol/L Glucose (74-99) mg/dL POC Glucose (mg/dL) 201 H (70-110) mg/dL Creatine Kinase (55-170) U/L Total Protein (6.3-8.2) g/dL Albumin (3.5-5.0) g/dL 10/19/23 Range/Units 14:45 WBC (3.8-10.6) k/uL Neutrophils # (1.3-7.7) k/uL APTT (22.0-30.0) sec Carbon Dioxide 19 L (22-30) mmol/L Glucose 194 H (74-99) mg/dL POC Glucose (mg/dL) (70-110) mg/dL Creatine Kinase 475 H (55-170) U/L Total Protein 8.3 H (6.3-8.2) g/dL Albumin 5.1 H (3.5-5.0) g/dL
[2023-10-19] MEDS: SODIUM CHLORIDE 0.9% 1,000 ML IV SCH (18:00)
[2023-10-19] MEDS: ATORVASTATIN 80 MG TAB PO SCH (21:50)
[2023-10-19] MEDS: INSULIN ASPART (NovoLOG) 100 UNIT/ML VIAL SQ SCH (21:50)
[2023-10-20 06:04] LABS: Glucose,Whole Blood 222 mg/dL (70-110)
[2023-10-20 08:21] LABS: Glucose,Whole Blood 227 mg/dL (70-110)
[2023-10-20] MEDS ORDERED: ASPIRIN 325 MG TAB PO SCH (09:00)
[2023-10-20 09:52] LABS: Basophils % (A) 0 %; Eosinophils % (A) 0 %; HCT 43.7 % (39.0-53.0); HGB 15.2 gm/dL (13.0-17.5); Lymphocytes # (A) 1.5 k/uL (1.0-4.8); Lymphocytes % (A) 12 %; MCH 31.9 pg (25.0-35.0); MCHC 34.7 g/dL (31.0-37.0); MCV 91.9 fL (80.0-100.0); Mean Platelet Volume 9.7; Monocytes # (A) 0.7 k/uL (0-1.0); Monocytes % (A) 5 %; Neutrophils # (A) 10.8 k/uL (1.3-7.7); Neutrophils % (A) 82 %; Platelet Count 205 k/uL (150-450); RBC 4.75 m/uL (4.30-5.90); RDW 13.6 % (11.5-15.5); WBC 13.2 k/uL (3.8-10.6)
[2023-10-20 10:12] LABS: African American GFR (CKD) >90 (>60 ml/min/1.73 sqM); Anion Gap 9 mmol/L; Blood Urea Nitrogen 18 mg/dL (9-20); Calcium 9.3 mg/dL (8.4-10.2); Carbon Dioxide 20 mmol/L (22-30); Chloride 109 mmol/L (98-107); Glucose 192 mg/dL (74-99); Non-African American GFR(CKD) >90 (>60 ml/min/1.73 sqM); Potassium 4.2 mmol/L (3.5-5.1); Sodium 138 mmol/L (137-145)
--- NOTE | 2023-10-20 10:51 | P.PN ---
Subjective Progress Note Date: 10/20/23 Hospital Course: 68-year-old male with history of CAD status post CABG, carotid artery disease, peripheral arterial disease, type 2 diabetes, hypertension, nicotine dependence, dyslipidemia presenting with unresponsiveness. In the ED, temperature was 98.4, pulse 101, respiratory rate 22, blood pressure 183/138, saturating at 100% on room air. WBC 12.1, hemoglobin 16.9, platelet 214, sodium 138, potassium 4.8, bicarb 19, creatinine 0.7, glucose 194, CK4 75. Brain CT shows acute subacute CVA of the left MCA territory, nonspecific white matter changes, likely secondary to chronic small vessel ischemic disease CT angiogram of of head and neck shows abrupt cut off of the left M3 segment of the MCA is suggested on the sagittal imaging, mild motion artifact, saccular aneurysm of the right internal carotid artery near its bifurcation measuring 0.8 x 8.8 cm, occlusion of left vertebral artery at the level of C2 and extending into the intracranial portion with reconstitution, no dissection. EKG independently interpreted, shows sinus tachycardia chest x-ray independently interpreted, low lung volumes, no clear opacities. No pleural effusion. Patient being admitted for acute/subacute stroke. Subjective: Patient seen and examined at bedside. This morning, he had a witnessed fall where he tried to get out of the bed and fell to the right side hurting his shoulder, he did not hit his head on the way down. Still not following commands or able to verbalize his needs. Pertinent positives and negatives as discussed above, a complete review of systems was performed and all other systems are negative. Vitals Signs Reviewed. General: nontoxic, no distress, appears at stated age Derm: warm, dry Head: atraumatic, normocephalic, symmetric Eyes: EOMI, no lid lag, anicteric sclera, pupils equal round reactive to light ENT: Nose and ears atraumatic Neck: No thyromegaly, supple Mouth: no lip lesion, mucus membranes moist Cardiovascular: S1S2 reg, systolic murmur, no edema Lungs: clear to auscultation bilateral, no rhonchi, no rales, no wheeze, no accessory muscle use Abdominal: soft, nontender to palpation, no guarding, no appreciable organomegaly Ext: Right hemiparesis, right shoulder bruising Neuro: Right-sided facial droop, aphasia and dysarthria Psych: Alert, not following commands Data Reviewed Today: Pertinent Labs: WBC 13.2, bicarb 20, creatinine 0.80, TSH 1.48, blood sugars range between 1 92-2 27 Imaging: No new imaging Assessment and Plan: Active: Acute/subacute left MCA stroke, likely embolic Left vertebral artery occlusion 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 Leukocytosis, reactive Mild rhabdomyolysis Anion gap metabolic acidosis, improving Type 2 diabetes with hyperglycemia Hypertension Dyslipidemia -On aspirin 81 mg, atorvastatin 80 mg -Neurology consulted -Echocardiogram ordered -Continue normal saline 100 cc an hour -Avoid hypotension, permissive hypertension for 24 to 48 hours -Repeat CK today, repeat CBC and BMP tomorrow -Continue on sliding scale insulin -PT/OT/speech therapy -Pending swallow evaluation Chronic: History of CAD Carotid artery disease Peripheral arterial disease DVT ppx: SCDs Code status: Full code Anticipated discharge place: Pending clinical course Anticipated discharge time: Pending clinical course Objective - Vital Signs Vital signs: Vital Signs Temp 97.8 F 10/20/23 08:10 Pulse 103 H 10/20/23 08:10 Resp 18 10/20/23 08:10 BP 148/86 10/20/23 08:10 Pulse Ox 98 10/20/23 08:10 FiO2 Intake & Output 10/19/23 10/20/23 10/20/23 18:59 06:59 18:59 Intake Total 500 Balance 500 Weight 87.362 kg 87.362 kg Intake: Intake, IV Titration 500 Amount Sodium Chloride 0.9% 1, 500 000 ml @ 100 mls/hr IV . Q10H [facility] Rx#:[id number] Oral 0 Other: Voiding Method Indwelling Catheter # Voids 800 - Labs CBC & Chem 7: 10/20/23 08:36 10/20/23 08:36 Labs: Abnormal Lab Results - Last 24 Hours (Table) 10/19/23 10/19/23 10/19/23 Range/Units 14:23 14:45 14:45 WBC 12.1 H (3.8-10.6) k/uL Neutrophils # 9.4 H (1.3-7.7) k/uL APTT 30.9 H (22.0-30.0) sec Chloride (98-107) mmol/L Carbon Dioxide (22-30) mmol/L Glucose (74-99) mg/dL POC Glucose (mg/dL) 201 H (70-110) mg/dL Creatine Kinase (55-170) U/L Total Protein (6.3-8.2) g/dL Albumin (3.5-5.0) g/dL 10/19/23 10/20/23 10/20/23 Range/Units 14:45 06:03 08:12 WBC (3.8-10.6) k/uL Neutrophils # (1.3-7.7) k/uL APTT (22.0-30.0) sec Chloride (98-107) mmol/L Carbon Dioxide 19 L (22-30) mmol/L Glucose 194 H (74-99) mg/dL POC Glucose (mg/dL) 222 H 227 H (70-110) mg/dL Creatine Kinase 475 H (55-170) U/L Total Protein 8.3 H (6.3-8.2) g/dL Albumin 5.1 H (3.5-5.0) g/dL 10/20/23 10/20/23 Range/Units 08:36 08:36 WBC 13.2 H (3.8-10.6) k/uL Neutrophils # 10.8 H (1.3-7.7) k/uL APTT (22.0-30.0) sec Chloride 109 H (98-107) mmol/L Carbon Dioxide 20 L (22-30) mmol/L Glucose 192 H (74-99) mg/dL POC Glucose (mg/dL) (70-110) mg/dL Creatine Kinase (55-170) U/L Total Protein (6.3-8.2) g/dL Albumin (3.5-5.0) g/dL
--- NOTE | 2023-10-20 11:19 | XR ---
EXAMINATION TYPE: XR shoulder complete RT DATE OF EXAM: 10/20/2023 CLINICAL HISTORY: pain TECHNIQUE: Three views of the right shoulder are obtained. COMPARISON: None FINDINGS: There is no acute fracture/dislocation evident. The acromioclavicular and glenohumeral ivana int spaces appear within normal limits. The visualized ribs are intact and unremarkable. IMPRESSION: 1. There is no acute fracture or dislocation. ICD 10 NO FRACTURE, INITIAL EVALUATION
[2023-10-20 11:36] LABS: Glucose,Whole Blood 193 mg/dL (70-110)
--- NOTE | 2023-10-20 12:33 | CA ---
Transthoracic Echo Report Name: Adan Taveras Age: 68 Gender: M : 1955 Exam Date: 10/20/2023 09:50 Exam Location: [facility] Ht (in): 73 Wt (lb): 192 Ordering Physician: Hakeem Talbert DO Attending/Referring Phys: Coding Analyst Cassie Holman RDCS Procedure CPT: Indications: Thrombus Cardiac Hx: Technical Quality: Fair Contrast 1: Total Dose (mL): Contrast 2: Total Dose (mL): MEASUREMENTS (Male / Female) Normal Values 2D ECHO LV Diastolic Diameter PLAX 5.3 cm 4.2 - 5.9 / 3.9 - 5.3 cm LV Systolic Diameter PLAX 3.7 cm IVS Diastolic Thickness 1.5 cm 0.6 - 1.0 / 0.6 - 0.9 cm LVPW Diastolic Thickness 1.5 cm 0.6 - 1.0 / 0.6 - 0.9 cm LV Relative Wall Thickness 0.6 RV Internal Dim ED PLAX 3.6 cm LA Systolic Diameter LX 3.9 cm 3.0 - 4.0 / 2.7 - 3.8 cm LV Diastolic Volume MOD 4C 129.4 cm??? LV Systolic Volume MOD 4C 62.5 cm??? LV Ejection Fraction MOD 4C 51.7 % LV Cardiac Index MOD 4C 2361.7 cm???/min???m??? LV Diastolic Length 4C 9.3 cm LV Systolic Length 4C 7.9 cm LV Diastolic Volume MOD 2C 77.5 cm??? LV Systolic Volume MOD 2C 41.5 cm??? LV Ejection Fraction MOD 2C 46.5 % LV Cardiac Index MOD 2C 1271.6 cm???/min???m??? LV Diastolic Length 2C 9.3 cm LV Systolic Length 2C 7.8 cm LA Volume 51.3 cm??? 18 - 58 / 22 - 52 cm??? LA Volume Index 24.1 cm???/m??? 16 - 28 cm???/m??? M-MODE Aortic Root Diameter MM 3.4 cm LA Systolic Diameter MM 3.8 cm LA Ao Ratio MM 1.1 MV E Point Septal Separation 0.4 cm AV Cusp Separation MM 2.2 cm DOPPLER AV Peak Velocity 156.9 cm/s AV Peak Gradient 9.8 mmHg MV Area PHT 4.3 cm??? Mitral E Point Velocity 88.7 cm/s Mitral A Point Velocity 119.1 cm/s Mitral E to A Ratio 0.7 MV Deceleration Time 177.5 ms MV E' Velocity 5.3 cm/s Mitral E to MV E' Ratio 16.7 FINDINGS Left Ventricle Left ventricular ejection fraction is estimated at 50-55 %. Left ventricular cavity size normal. Moderately increased septal wall thickness. Basel septal and basel inferior hypokinesis Right Ventricle Mild right ventricular dilatation. Unable to estimate the right ventricular systolic pressure. Right Atrium Normal right atrial size. Left Atrium Normal left atrial size. Mitral Valve Structurally normal mitral valve. Mild mitral regurgitation.mitral annular calcification. Aortic Valve Trileaflet aortic valve. No aortic valve stenosis or regurgitation. Tricuspid Valve Structurally normal tricuspid valve. Mild tricuspid regurgitation. Pulmonic Valve Structurally normal pulmonic valve. No pulmonic regurgitation. Pericardium No pericardial effusion. Aorta Normal size aortic root and proximal ascending aorta. CONCLUSIONS 1. Left ventricle systolic function borderline normal with segmental wall motion abnormality 2. Mild mitral and tricuspid regurgitation Previewed by: Dr. Earl Wright MD (Electronically Signed) Final Date: 20 October 2023 12:32
[2023-10-20] MEDS: ASPIRIN 81 MG PO SCH (12:55)
--- NOTE | 2023-10-20 13:18 | P.CNNES ---
History of Present Illness Consult date: 10/20/23 Requesting physician: Hakeem Talbert Reason for Consult: CVA History of Present Illness: Patient is a 68-year-old male came to the hospital by ambulance yesterday at 1:55 PM for an acute stroke. Patient not able to provide any history because of severe aphasia. As per EMS flowsheet, when they arrived, found patient on the floor of his bedroom and then unkept cluttered home with pathways in between trash, and patient was in right lateral recumbent dressed in clothes, saturated in urine and fecal material. Unknown how long patient has been here in this condition. Last known well is unknown, as he communicated via text last Wednesday to his brother who found him today. Patient was unconscious, responsive to pain, eyes open with moaning and withdrawal from pain. Blood glucose was 211. Patient increased response to verbal with some words confused mumble withdrawal from pain x 4 extremities. Pupils are equal, round and reacting. Vital signs at the scene was blood pressure 187/145, pulse rate 102, respiration 18, saturation 99%. Repeat blood pressure was 190/111. Vitals on arrival blood pressure 183/138, which improved to 187/97, temperature 98.4. Blood test shows WBC 12.1 hemoglobin 16.9, platelets 214. PT PTT is normal, Chem-7 is normal, liver functions normal. TSH is normal. CK4 75. EKG shows sinus tachycardia with first-degree AV block. CT head revealed acute/subacute CVA of the left MCA territory. Nonspecific white matter changes, likely secondary to chronic small vessel ischemic disease. I personally reviewed CT head, agree with the findings. Patient at present is laying in the bed, patient is severely aphasic. He is pleasant. He has left gaze preference. Patient admits to smoking, but could not express how much. Review of Systems Nurse does not know any more details. Family members not present. ROS unobtainable: due to mental status Past Medical History Past Medical History: Coronary Artery Disease (CAD), Chest Pain / Angina, Heart Failure, COPD, CVA/TIA, Diabetes Mellitus, Hypertension, Myocardial Infarction ([place]), Sleep Apnea/CPAP/BIPAP Additional Past Medical History / Comment(s): Routine colonoscopy, past polyp, IDDM type II, TIA, sleep apnea- has cpap at home but doesn't wear. 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 Last Myocardial Infarction Date:: unknown-about 1999 History of Any Multi-Drug Resistant Organisms: MRSA Date of last positivie culture/infection: 2019 MDRO Source:: chest Past Surgical History: Coronary Bypass/CABG, Heart Catheterization Additional Past Surgical History / Comment(s): CABG 4 vessel, vasectomy Past Anesthesia/Blood Transfusion Reactions: No Reported Reaction Smoking Status: Current every day smoker - Past Family History Father Family Medical History: COPD Medications and Allergies Home Medications Medication Instructions Recorded Confirmed Type Aspirin EC [Ecotrin Low Dose] 81 mg PO DAILY 10/11/22 10/19/23 History Sertraline [Zoloft] 100 mg PO DAILY 10/11/22 10/19/23 History carvediloL [Coreg] 6.25 mg PO BID-W/MEALS #60 tab 10/14/22 10/19/23 Rx Insulin Aspart [NovoLOG Flexpen] 10 units SQ AC-TID 06/15/23 10/19/23 History Insulin Glargine,Hum.rec.anlog 20 units SQ HS 06/15/23 10/19/23 History [Lantus Solostar Pen] amLODIPine [Norvasc] 10 mg PO DAILY 06/15/23 10/19/23 History Atorvastatin [Lipitor] 80 mg PO DAILY 10/19/23 10/19/23 History Doxycycline Hyclate 100 mg PO BID 10/19/23 10/19/23 History traZODone HCL [Desyrel] 75 mg PO HS 10/19/23 10/19/23 History Allergies Allergy/AdvReac Type Severity Reaction Status Date / Time iodine Allergy Severe Anaphylaxis Verified 10/19/23 14:13 shellfish derived [Shellfish] Allergy Severe Anaphylaxis Verified 10/19/23 14:13 Physical Examination - Vital Signs Vital Signs: Vital Signs Temp Pulse Pulse Pulse Resp BP BP 10/20/23 08:10 97.8 F 103 H 18 148/86 10/20/23 04:00 97.3 F L 90 18 142/86 10/20/23 02:00 85 18 10/20/23 00:00 85 18 138/75 10/19/23 20:00 97 F L 91 18 129/66 10/19/23 18:00 92 8 L 138/96 10/19/23 16:30 86 16 168/93 10/19/23 16:07 93 18 141/99 10/19/23 15:15 87 16 161/111 10/19/23 15:00 88 18 193/96 10/19/23 14:45 90 18 190/92 10/19/23 14:40 88 16 187/97 10/19/23 14:08 98.4 F 101 H 22 183/138 Pulse Ox 10/20/23 08:10 98 10/20/23 04:00 96 10/20/23 02:00 10/20/23 00:00 94 L 10/19/23 20:00 98 10/19/23 18:00 96 10/19/23 16:30 96 10/19/23 16:07 96 10/19/23 15:15 98 10/19/23 15:00 99 10/19/23 14:45 98 10/19/23 14:40 98 10/19/23 14:08 100 Intake and Output 10/19/23 10/20/23 10/20/23 22:59 06:59 14:59 Intake Total 500 Balance 500 Intake: Intake, IV Titration 500 Amount Sodium Chloride 0.9% 1, 500 000 ml @ 100 mls/hr IV . Q10H [facility] Rx#:[id number] Oral 0 Other: Voiding Method Indwelling Catheter Indwelling Catheter # Voids 800 Weight 87.362 kg Patient is an elderly male, in no acute distress. Patient is very pleasant. Patient is alert awake, severely aphasic. Earlier patient was able to tell his name, but not anymore. On asking his name, patient states "hi". Then he said " what ever". Patient not able to name any objects, cannot repeat. Patient speaks some nonsensical speech, unintelligible, difficult to understand. Comprehension is also severely affected. Patient cannot point to the ceiling or the window. Attention, concentration is significantly impaired and fund of knowledge difficult to assess because of aphasia. On cranial nerve examination, pupils are equal, round and reacting to light. Visual porter reveals right visual field neglect and deficit. Extraocular muscles are intact with no nystagmus. Patient has right facial weakness, central type. Patient's tongue protrudes to midline. Palatal elevation is normal, hearing difficult to assess although he can follow some directions. Lower cranial nerves cannot be assessed. He is not following directions to check for the shoulder shrug. On muscle strength testing, patient has right arm weakness, with pronator drift, and hits the bed. His left arm appears normal. Patient's hip flexion appears fairly equal, although the right slightly droops more as compared to the left with strength of about 4+ bilaterally. Ankle dorsiflexion is 4 on the right, 5 on the left. Deep tendon reflexes are symmetric 3 at the biceps, 3 at the brachioradialis, 3 at the knees, absent ankles and plantars up on the right, down left. Sensory to touch could not be assessed, as patient states "yeah" for everything. Cerebellar function cannot be assessed as patient did not cooperate. Tone and bulk of muscles normal. Gait deferred.. On general examination, there is no carotid bruit or murmur, S1-S2 audible. Chest is clear on consultation. Abdomen is soft nontender. No organomegaly, bowel sounds present. Peripheral pulses are present. No peripheral edema. Results - Laboratory Findings CBC and BMP: 10/20/23 08:36 10/20/23 08:36 Abnormal Lab Findings: Abnormal Labs 10/19/23 10/19/23 10/19/23 14:23 14:45 14:45 WBC 12.1 H Neutrophils # 9.4 H APTT 30.9 H Chloride Carbon Dioxide Glucose POC Glucose (mg/dL) 201 H Creatine Kinase Total Protein Albumin 10/19/23 10/20/23 10/20/23 14:45 06:03 08:12 WBC Neutrophils # APTT Chloride Carbon Dioxide 19 L Glucose 194 H POC Glucose (mg/dL) 222 H 227 H Creatine Kinase 475 H Total Protein 8.3 H Albumin 5.1 H 10/20/23 10/20/23 10/20/23 08:36 08:36 11:35 WBC 13.2 H Neutrophils # 10.8 H APTT Chloride 109 H Carbon Dioxide 20 L Glucose 192 H POC Glucose (mg/dL) 193 H Creatine Kinase Total Protein Albumin Assessment and Plan Assessment: * Acute ischemic stroke, left MCA territory, probably embolic. CTA revealed abrupt cut off of the left M3 segment of the left MCA. Patient was not a candidate for tPA or thrombectomy. Current NIH stroke scale difficult to assess because of severe aphasia. 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 This is clinically asymptomatic at this time. * Hypertension * Tobacco use. Plan: Patient has presented with an acute stroke, likely embolic. Rule out cardiac source. 2-D echo revealed moderately increased septal wall thickness. Basal septal and basal inferior wall hypokinesis. EF is 50 to 55%. Left atrial size is normal. CTA head and neck showed: Abrupt cut off of the left M3 segment of the MCA suggested on sagittal imaging. Mild motion artifact. 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 Occlusion of the left vertebral artery at the level of C2 and extending into the intracranial portion with reconstitution. No evidence of dissection occlusion of the cervical internal carotid arteries. Recommend patient follow-up with neurointervention outpatient once the stroke has stabilized for further intervention of saccular aneurysm. Fasting a.m. lipid panel Hemoglobin A1c Permissive hypertension for next 24-48 hours Continue aspirin 81 mg daily. It appears patient was taking aspirin 81 mg at home. Avoid DAPT because of risk of hemorrhagic conversion. Repeat CT head in the morning to rule out worsening cerebral edema, hemorrhagic conversion. Neuro checks every 4 hours. Telemetry monitoring rule out any arrhythmia PT, OT, speech therapy DVT prophylaxis: Heparin 5000 units subcu every 8 hours Tobacco cessation. We will try to contact family members to get collateral history. Neurology will continue to follow. Thank you for the consult.
[2023-10-20 16:34] LABS: Glucose,Whole Blood 116 mg/dL (70-110)
[2023-10-20 18:36] LABS: Chol/HDL Ratio 7.03 Ratio; LDL Cholesterol,Calculated 222.7 mg/dL (0.0-131.0)
[2023-10-20] MEDS: HEPARIN SODIUM,PORCINE 5,000 UNIT/ML 1 ML VIAL SQ SCH (18:44)
[2023-10-20 20:16] LABS: Glucose,Whole Blood 132 mg/dL (70-110)
[2023-10-21 06:31] LABS: Glucose,Whole Blood 122 mg/dL (70-110)
[2023-10-21 09:37] LABS: Basophils # (A) 0.1 k/uL (0-0.2); Basophils % (A) 1 %; Eosinophils # (A) 0.1 k/uL (0-0.7); Eosinophils % (A) 1 %; HCT 40.6 % (39.0-53.0); HGB 14.2 gm/dL (13.0-17.5); Lymphocytes # (A) 2.9 k/uL (1.0-4.8); Lymphocytes % (A) 38 %; MCHC 34.9 g/dL (31.0-37.0); MCV 91.6 fL (80.0-100.0); Mean Platelet Volume 9.6; Monocytes # (A) 0.5 k/uL (0-1.0); Monocytes % (A) 6 %; Neutrophils # (A) 4.1 k/uL (1.3-7.7); Neutrophils % (A) 53 %; Platelet Count 197 k/uL (150-450); RBC 4.43 m/uL (4.30-5.90); RDW 13.3 % (11.5-15.5); WBC 7.7 k/uL (3.8-10.6)
[2023-10-21 09:54] LABS: African American GFR (CKD) >90 (>60 ml/min/1.73 sqM); Anion Gap 6 mmol/L; Blood Urea Nitrogen 19 mg/dL (9-20); Calcium 8.9 mg/dL (8.4-10.2); Carbon Dioxide 21 mmol/L (22-30); Chloride 110 mmol/L (98-107); Glucose 124 mg/dL (74-99); Non-African American GFR(CKD) 88 (>60 ml/min/1.73 sqM); Potassium 4.1 mmol/L (3.5-5.1); Sodium 137 mmol/L (137-145)
[2023-10-21 11:40] LABS: Glucose,Whole Blood 144 mg/dL (70-110)
--- NOTE | 2023-10-21 14:22 | P.PN ---
Subjective Progress Note Date: 10/21/23 Hospital Course: 68-year-old male with history of CAD status post CABG, carotid artery disease, peripheral arterial disease, type 2 diabetes, hypertension, nicotine dependence, dyslipidemia presenting with unresponsiveness. In the ED, temperature was 98.4, pulse 101, respiratory rate 22, blood pressure 183/138, saturating at 100% on room air. WBC 12.1, hemoglobin 16.9, platelet 214, sodium 138, potassium 4.8, bicarb 19, creatinine 0.7, glucose 194, CK4 75. Brain CT shows acute subacute CVA of the left MCA territory, nonspecific white matter changes, likely secondary to chronic small vessel ischemic disease CT angiogram of of head and neck shows abrupt cut off of the left M3 segment of the MCA is suggested on the sagittal imaging, mild motion artifact, saccular aneurysm of the right internal carotid artery near its bifurcation measuring 0.8 x 8.8 cm, occlusion of left vertebral artery at the level of C2 and extending into the intracranial portion with reconstitution, no dissection. EKG independently interpreted, shows sinus tachycardia chest x-ray independently interpreted, low lung volumes, no clear opacities. No pleural effusion. Patient being admitted for acute/subacute stroke. Echocardiogram showed LVEF 50 to 55%, moderately increased septal wall thickness, basal septal and basal inferior hypokinesis, mild mitral and tricuspid regurgitation. Subjective: Patient seen and examined at bedside. This morning, he had a witnessed fall where he tried to get out of the bed and fell to the right side hurting his shoulder, he did not hit his head on the way down. Still not following commands or able to verbalize his needs. Pertinent positives and negatives as discussed above, a complete review of systems was performed and all other systems are negative. Vitals Signs Reviewed. General: nontoxic, no distress, appears at stated age Derm: warm, dry Head: atraumatic, normocephalic, symmetric Eyes: EOMI, no lid lag, anicteric sclera, pupils equal round reactive to light ENT: Nose and ears atraumatic Neck: No thyromegaly, supple Mouth: no lip lesion, mucus membranes moist Cardiovascular: S1S2 reg, systolic murmur, no edema Lungs: clear to auscultation bilateral, no rhonchi, no rales, no wheeze, no accessory muscle use Abdominal: soft, nontender to palpation, no guarding, no appreciable organomegaly Ext: Right hemiparesis, right shoulder bruising Neuro: Right-sided facial droop, aphasia and dysarthria Psych: Alert, not following commands Data Reviewed Today: Pertinent Labs: WBC 7.7, hemoglobin 14.2, bicarb 21, creatinine 0.86, blood sugars range between 1 22-1 44 Imaging: Echocardiogram showed LVEF 50 to 55%, moderately increased septal wall thickness, basal septal and basal inferior hypokinesis, mild mitral and tricuspid regurgitation. Assessment and Plan: Active: Acute/subacute left MCA stroke, likely embolic Left vertebral artery occlusion 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 Leukocytosis, reactive, resolved Mild rhabdomyolysis Anion gap metabolic acidosis, improving Type 2 diabetes with hyperglycemia Hypertension Dyslipidemia -On aspirin 81 mg, atorvastatin 80 mg -Neurology following, repeat CT -Continue normal saline 100 cc an hour -Restarted amlodipine 10 mg, Coreg 6.25 twice daily-CK still uptrending, repeat secure -Continue on sliding scale insulin, 20 units of home glargine added -PT/OT/speech therapy -IPR consult Chronic: History of CAD Carotid artery disease Peripheral arterial disease Depression DVT ppx: SCDs Code status: Full code Anticipated discharge place: Pending clinical course Anticipated discharge time: Pending clinical course Objective - Vital Signs Vital signs: Vital Signs Temp 98.3 F 10/21/23 12:00 Pulse 70 10/21/23 12:00 Resp 16 10/21/23 12:00 BP 134/69 10/21/23 12:00 Pulse Ox 97 10/21/23 12:00 FiO2 Intake & Output 10/20/23 10/21/23 10/21/23 18:59 06:59 18:59 Intake Total 236 120 Output Total 200 Balance 236 -80 Intake: Oral 236 120 Output: Urine 200 Other: Voiding Method Indwelling Catheter Indwelling Catheter Indwelling Catheter # Bowel Movements 1 - Labs CBC & Chem 7: 10/21/23 08:36 10/21/23 08:36 Labs: Abnormal Lab Results - Last 24 Hours (Table) 10/20/23 10/20/23 10/20/23 Range/Units 08:36 08:36 16:32 Chloride (98-107) mmol/L Carbon Dioxide (22-30) mmol/L Glucose (74-99) mg/dL POC Glucose (mg/dL) 116 H (70-110) mg/dL Hemoglobin A1c 7.4 H (<=6.0) % Cholesterol 289.00 H (0.00-200.00) mg/dL LDL Cholesterol, Calc 222.7 H (0.0-131.0) mg/dL 10/20/23 10/21/23 10/21/23 Range/Units 20:14 06:30 08:36 Chloride 110 H (98-107) mmol/L Carbon Dioxide 21 L (22-30) mmol/L Glucose 124 H (74-99) mg/dL POC Glucose (mg/dL) 132 H 122 H (70-110) mg/dL Hemoglobin A1c (<=6.0) % Cholesterol (0.00-200.00) mg/dL LDL Cholesterol, Calc (0.0-131.0) mg/dL 10/21/23 Range/Units 11:39 Chloride (98-107) mmol/L Carbon Dioxide (22-30) mmol/L Glucose (74-99) mg/dL POC Glucose (mg/dL) 144 H (70-110) mg/dL Hemoglobin A1c (<=6.0) % Cholesterol (0.00-200.00) mg/dL LDL Cholesterol, Calc (0.0-131.0) mg/dL
[2023-10-21] MEDS: carvediloL 6.25 MG TAB PO SCH (15:31)
[2023-10-21 16:20] LABS: Glucose,Whole Blood 153 mg/dL (70-110)
--- NOTE | 2023-10-21 18:18 | CT ---
EXAMINATION TYPE: CT brain wo con DATE OF EXAM: 10/21/2023 HISTORY: recent stroke TECHNIQUE: Departmental protocol CT DLP: 1095.4 mGycm. Automated Exposure Control for Dose Reduction was Utilized. . COMPARISON: CT 10/19/2023 FINDINGS: Redemonstrated low-attenuation and sulcal effacement throughout the left temporal and parie velasquez lobes in the vascular territory of the left MCA, as seen on 10/19/2023. There is no midline shift of structures. The basal cisterns are patent. There is no intracranial hemorrhage or other acute process.. IMPRESSION: Large left MCA territory nonhemorrhagic subacute infarction.
[2023-10-21 19:53] LABS: Glucose,Whole Blood 202 mg/dL (70-110)
[2023-10-21] MEDS: INSULIN DETEMIR (LEVEMIR) 100 UNIT/ML SYR SQ SCH (20:24)
[2023-10-22 06:03] LABS: Glucose,Whole Blood 88 mg/dL (70-110)
[2023-10-22] MEDS: NICOTINE 21MG/24HR PATCH TRANSDERM SCH (09:05)
[2023-10-22] MEDS: amLODIPine 10 MG TAB PO SCH (09:05)
[2023-10-22] MEDS: SERTRALINE 100 MG TAB PO SCH (09:05)
--- NOTE | 2023-10-22 09:45 | P.CONS ---
History of Present Illness - Reason for Consult Consult date: 10/21/23 rehab recommendations - Chief Complaint CVA, right victor manuel - History of Present Illness Mr Adan Taveras is a 68 y/o left handed single male who lives alone in a single story home, couple of steps to get into his home. He was independent with mobility and ADLs w/o assistive device per patient's brother. He gets meals on wheels. He has two children. He does not drive, family assists as needed. He is a disabled [place]. His brother lives in [place] and sister lives in [place]. Patient presenting to the emergency department by EMS on 10/19/23 after being found on the floor by brother covered in stool and urine. EKG showed tachycardia. Brain CT shows acute subacute CVA of the left MCA territory, nonspecific white matter changes, likely secondary to chronic small vessel ischemic disease. CT angiogram of of head and neck shows abrupt cut off of the left M3 segment of the MCA is suggested on the sagittal imaging, mild motion artifact, saccular aneurysm of the right internal carotid artery near its bifurcation measuring 0.8 x 8.8 cm, occlusion of left vertebral artery at the level of C2 and extending into the intracranial portion with reconstitution, no dissection. chest x-ray independently interpreted, low lung volumes, no clear opacities. No pleural effusion. Patient was admitted for acute/subacute stroke. Neurology consulted, echo ordered. Patient had a witnessed fall while trying to get himself out of bed, He did not hit his head. Repeat head CT. 2-D echo revealed moderately increased septal wall thickness. Basal septal and basal inferior wall hypokinesis. EF is 50 to 55%. Left atrial size is normal. PM&R consulted for rehab recommendations; patient is max assist with bathing, mod to max assist with dressing, mod assist with grooming, gait 70 ft with min assist RW, ground NTL, no straws. 10/21/23: Patient laying in bed, NAD. Nursing reports he is following commands better, but still only answering questions with "yea" and "ok". He does not appears to be in any cardiopulmonary distress. He has a roper catheter. Per brother it appears his right sided weakness is improving and more alert. Review of Systems reviewed, negative unless stated above in HPI Past Medical History Past Medical History: Coronary Artery Disease (CAD), Chest Pain / Angina, Heart Failure, COPD, CVA/TIA, Diabetes Mellitus, Hypertension, Myocardial Infarction ([place]), Sleep Apnea/CPAP/BIPAP Additional Past Medical History / Comment(s): Routine colonoscopy, past polyp, IDDM type II, TIA, sleep apnea- has cpap at home but doesn't wear. 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 Last Myocardial Infarction Date:: unknown-about 1999 History of Any Multi-Drug Resistant Organisms: MRSA Year Discovered:: 2019 MDRO Source:: chest Past Surgical History: Coronary Bypass/CABG, Heart Catheterization Additional Past Surgical History / Comment(s): CABG 4 vessel, vasectomy Past Anesthesia/Blood Transfusion Reactions: No Reported Reaction Smoking Status: Current every day smoker - Past Family History Father Family Medical History: COPD Medications and Allergies Home Medications Medication Instructions Recorded Confirmed Type Aspirin EC [Ecotrin Low Dose] 81 mg PO DAILY 10/11/22 10/19/23 History Sertraline [Zoloft] 100 mg PO DAILY 10/11/22 10/19/23 History carvediloL [Coreg] 6.25 mg PO BID-W/MEALS #60 tab 10/14/22 10/19/23 Rx Insulin Aspart [NovoLOG Flexpen] 10 units SQ AC-TID 06/15/23 10/19/23 History Insulin Glargine,Hum.rec.anlog 20 units SQ HS 06/15/23 10/19/23 History [Lantus Solostar Pen] amLODIPine [Norvasc] 10 mg PO DAILY 06/15/23 10/19/23 History Atorvastatin [Lipitor] 80 mg PO DAILY 10/19/23 10/19/23 History Doxycycline Hyclate 100 mg PO BID 10/19/23 10/19/23 History traZODone HCL [Desyrel] 75 mg PO HS 10/19/23 10/19/23 History Allergies Allergy/AdvReac Type Severity Reaction Status Date / Time iodine Allergy Severe Anaphylaxis Verified 10/19/23 14:13 shellfish derived [Shellfish] Allergy Severe Anaphylaxis Verified 10/19/23 14:13 Physical Exam Vitals: Vital Signs Temp Pulse Pulse Resp BP Pulse Ox 10/21/23 12:00 98.3 F 70 16 134/69 97 10/21/23 09:00 70 16 10/21/23 08:00 99.1 F 70 16 161/87 98 10/21/23 04:00 75 18 144/92 93 L 10/21/23 02:00 90 87 18 10/21/23 00:00 90 18 136/88 95 10/20/23 20:20 97.6 F 87 16 153/79 97 10/20/23 20:00 87 16 10/20/23 18:54 77 16 10/20/23 17:13 97.5 F L 77 16 146/74 98 Intake and Output 10/21/23 10/21/23 10/21/23 06:59 14:59 22:59 Intake Total 120 Output Total 200 Balance -80 Intake: Oral 120 Output: Urine 200 Other: Voiding Method Indwelling Catheter Indwelling Catheter General: WDWN, unkempt male, laying in bed, NAD Head: Normocephalic, atraumatic. Eyes: Symmetric Ears: Symmetric. Hearing within normal limits. Mouth: Clear. Neck: Supple. Cardiac: lunchroom monitor on. Calves supple, non tender, no LE edema Lungs: Breathing comfortably on RA. Chest symmetric. Abdomen: Soft, nontender. Extremities: Arthritic changes consistent with age. Neurological: Alert, makes eye contact when name is called. Speech is clear, but only answers with "yea" and "ok", expressive > receptive aphasia. Follows 1-2 step commands at times. R sided ataxia Unable to assess Cranial nerves accurately due to difficulty following instructions and aphasia. Right side facial droop. Musculoskeletal: Functional ROM of extremities, right hemiparesis and ataxia MMT UE Sh Abd EE EF FABD WE HG Right 4 4 4+ 4+ Left 5 5 5 5 MMT LE HF KE DF EHL Right 4+ 5- 4+ 4+ Left 5 5 5 5 Reflexes Biceps Triceps Brachioradialis Patella Achilles Babinski Hoffmans Right 3 3 3 3 0 - - Left 3 3 3 3 0 - - Skin: Skin intact where visible to head, neck, and bilateral upper and lower extremities EXCEPT: peripheral IV Psych: Calm, cooperative Results CBC & Chem 7: 10/21/23 08:36 10/21/23 08:36 Labs: Abnormal Lab Results - Last 24 Hours (Table) 10/20/23 10/20/23 10/20/23 Range/Units 08:36 08:36 16:32 Chloride (98-107) mmol/L Carbon Dioxide (22-30) mmol/L Glucose (74-99) mg/dL POC Glucose (mg/dL) 116 H (70-110) mg/dL Hemoglobin A1c 7.4 H (<=6.0) % Creatine Kinase (55-170) U/L Cholesterol 289.00 H (0.00-200.00) mg/dL LDL Cholesterol, Calc 222.7 H (0.0-131.0) mg/dL 10/20/23 10/21/23 10/21/23 Range/Units 20:14 06:30 08:36 Chloride 110 H (98-107) mmol/L Carbon Dioxide 21 L (22-30) mmol/L Glucose 124 H (74-99) mg/dL POC Glucose (mg/dL) 132 H 122 H (70-110) mg/dL Hemoglobin A1c (<=6.0) % Creatine Kinase (55-170) U/L Cholesterol (0.00-200.00) mg/dL LDL Cholesterol, Calc (0.0-131.0) mg/dL 10/21/23 10/21/23 Range/Units 08:36 11:39 Chloride (98-107) mmol/L Carbon Dioxide (22-30) mmol/L Glucose (74-99) mg/dL POC Glucose (mg/dL) 144 H (70-110) mg/dL Hemoglobin A1c (<=6.0) % Creatine Kinase 471 H (55-170) U/L Cholesterol (0.00-200.00) mg/dL LDL Cholesterol, Calc (0.0-131.0) mg/dL Assessment and Plan Assessment: # right hemiparesis secondary to acute subacute CVA of the left MCA territory, n onspecific white matter changes, likely secondary to chronic small vessel ischemic disease -PT/OT/[employer] -fall precautions # Left vertebral artery occlusion # Expressive and receptive Aphasia # Right side neglect # Dysphagia- ground NTL, no straws # Fall at hospital -fall precaution # Saccular Aneurysm of right ICA # mild Rhabdomyolysis # T2DM # Comorbidities: CAD, HF, COPD, CVA, HTN, [place], sleep apnea, history of TB, aneurysm, history of CABG, anxiety, depression, current tobacco user, marijuana use # DVT Proph- per NOV # Pain Management - per NOV # Your medical dx and management Disposition: Patient is performing below his baseline level of function, recommending IPR for continued rehab, patient will need authorization through insurance for IPR. He has family support. Discussed with patient's brother who states that both him and his sister would like IPR pursued. Patient seen and examined in collaboration with Dr Desean Garcia Thank you for consulting our services.
--- NOTE | 2023-10-22 10:09 | P.PN ---
Subjective Progress Note Date: 10/21/23 Patient was seen for follow-up. Patient's brother was also present, who provided with the further history. Patient's brother states that patient has been diagnosed with 3 cerebral aneurysms, and he gets workup at [facility]. He was considered for endovascular coiling of an aneurysm, but they wanted to do more imaging, but patient ended up here. Patient lives by himself. He has 2 daughters, which are out of state. Patient's brother often checks on him. He also has Meals on Wheels, twice a day. He apparently was fine Wednesday afternoon at 4 PM to answer to the doorbell for Meals on Wheels. Patient stroke happen sometimes after 4 PM Wednesday to the time on Wednesday at 1:29 PM when he was discovered in his bedroom on the floor, and brought to the hospital by ambulance. He mentions that patient has history of diabetes for 2 years. Patient has history of a "mini stroke", affected vision right eye, but it came back. Patient does have memory issues, which is slightly more than his expected age. His memory disturbance "comes and goes". Patient has smoked less than 1 pack/day since age 16. Patient also used to drink heavily for about 25 years, quit 12 years ago. Objective - Vital Signs Vital signs: Vital Signs Temp 98.3 F 10/21/23 12:00 Pulse 70 10/21/23 12:00 Resp 16 10/21/23 12:00 BP 134/69 10/21/23 12:00 Pulse Ox 97 10/21/23 12:00 FiO2 Intake & Output 10/20/23 10/21/23 10/21/23 18:59 06:59 18:59 Intake Total 236 120 Output Total 200 Balance 236 -80 Intake: Oral 236 120 Output: Urine 200 Other: Voiding Method Indwelling Catheter Indwelling Catheter Indwelling Catheter # Bowel Movements 1 - Exam Patient is more alert and awake, still very aphasic, not able to name any objects, or repeat. He is speaking slightly more better spontaneous phrases. On cranial examination his pupils are equal, round and reactive to light. He has right visual field deficit, homonymous type. Patient has mild right facial asymmetry. Tongue protrudes to the midline. On muscle strength testing, there is very mild right pronator drift. Strength appears grossly equal and normal in the arms. In the lower limbs (right/left) hip flexion 5-/5, ankle dorsiflexion 4+/5. Patient has Babinski on the right side. - Labs CBC & Chem 7: 10/21/23 08:36 10/21/23 08:36 Labs: Abnormal Lab Results - Last 24 Hours (Table) 10/20/23 10/20/23 10/20/23 Range/Units 08:36 16:32 20:14 Chloride (98-107) mmol/L Carbon Dioxide (22-30) mmol/L Glucose (74-99) mg/dL POC Glucose (mg/dL) 116 H 132 H (70-110) mg/dL Creatine Kinase (55-170) U/L Cholesterol 289.00 H (0.00-200.00) mg/dL LDL Cholesterol, Calc 222.7 H (0.0-131.0) mg/dL 10/21/23 10/21/23 10/21/23 Range/Units 06:30 08:36 08:36 Chloride 110 H (98-107) mmol/L Carbon Dioxide 21 L (22-30) mmol/L Glucose 124 H (74-99) mg/dL POC Glucose (mg/dL) 122 H (70-110) mg/dL Creatine Kinase 471 H (55-170) U/L Cholesterol (0.00-200.00) mg/dL LDL Cholesterol, Calc (0.0-131.0) mg/dL 10/21/23 10/21/23 Range/Units 11:39 16:19 Chloride (98-107) mmol/L Carbon Dioxide (22-30) mmol/L Glucose (74-99) mg/dL POC Glucose (mg/dL) 144 H 153 H (70-110) mg/dL Creatine Kinase (55-170) U/L Cholesterol (0.00-200.00) mg/dL LDL Cholesterol, Calc (0.0-131.0) mg/dL Assessment and Plan Assessment: * Acute ischemic stroke, left MCA territory, probably embolic. CTA revealed abrupt cut off of the left M3 segment of the left MCA. Patient was not a candidate for tPA or thrombectomy. 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 This is clinically asymptomatic at this time. * Hypertension * Tobacco use. Plan: Patient has presented with an acute stroke, likely embolic. Rule out cardiac source. 2-D echo revealed moderately increased septal wall thickness. Basal septal and basal inferior wall hypokinesis. EF is 50 to 55%. Left atrial size is normal. CTA head and neck showed: Abrupt cut off of the left M3 segment of the MCA suggested on sagittal imaging. Mild motion artifact. 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 Occlusion of the left vertebral artery at the level of C2 and extending into the intracranial portion with reconstitution. No evidence of dissection occlusion of the cervical internal carotid arteries. As per patient's brother's report, patient has been diagnosed with 3 aneurysms, and he was recently in the process of getting endovascular coiling of one of the aneurysm at [facility], but he ended up in this hospital with acute stroke. Patient need to follow-up with his neurointervention outpatient at [facility]. Fasting a.m. lipid panel cholesterol 289, LDL 222, HDL 41, triglycerides 126. Agree with starting high intensity statins Lipitor 80 mg daily. Hemoglobin A1c 7.4. Recommend optimize control of diabetes to target A1c <7.0. Permissive hypertension for next 24-48 hours Continue aspirin 81 mg daily. It appears patient was taking aspirin 81 mg at home. Avoid DAPT because of risk of hemorrhagic conversion. Repeat CT head in the morning to rule out worsening cerebral edema, hemorrhagic conversion. Neuro checks every 4 hours. Telemetry monitoring rule out any arrhythmia PT, OT, speech therapy DVT prophylaxis: Heparin 5000 units subcu every 8 hours Tobacco cessation. Discussed with patient's brother in detail.
[2023-10-22 11:29] LABS: Glucose,Whole Blood 109 mg/dL (70-110)
--- NOTE | 2023-10-22 13:09 | P.PN ---
Subjective Progress Note Date: 10/22/23 Hospital Course: 68-year-old male with history of CAD status post CABG, carotid artery disease, peripheral arterial disease, type 2 diabetes, hypertension, nicotine dependence, dyslipidemia presenting with unresponsiveness. In the ED, temperature was 98.4, pulse 101, respiratory rate 22, blood pressure 183/138, saturating at 100% on room air. WBC 12.1, hemoglobin 16.9, platelet 214, sodium 138, potassium 4.8, bicarb 19, creatinine 0.7, glucose 194, CK4 75. Brain CT shows acute subacute CVA of the left MCA territory, nonspecific white matter changes, likely secondary to chronic small vessel ischemic disease CT angiogram of of head and neck shows abrupt cut off of the left M3 segment of the MCA is suggested on the sagittal imaging, mild motion artifact, saccular aneurysm of the right internal carotid artery near its bifurcation measuring 0.8 x 8.8 cm, occlusion of left vertebral artery at the level of C2 and extending into the intracranial portion with reconstitution, no dissection. EKG independently interpreted, shows sinus tachycardia chest x-ray independently interpreted, low lung volumes, no clear opacities. No pleural effusion. Patient being admitted for acute/subacute stroke. Echocardiogram showed LVEF 50 to 55%, moderately increased septal wall thickness, basal septal and basal inferior hypokinesis, mild mitral and tricuspid regurgitation. Neurology consulted. Repeat brain CT showed large left MCA territory nonhemorrhagic subacute infarction. Patient slowly improving , plan for possible inpatient rehab. Subjective: Patient seen and examined at bedside. No acute events overnight. Pertinent positives and negatives as discussed above, a complete review of systems was performed and all other systems are negative. Vitals Signs Reviewed. General: nontoxic, no distress, appears at stated age Derm: warm, dry Head: atraumatic, normocephalic, symmetric Eyes: EOMI, no lid lag, anicteric sclera, pupils equal round reactive to light ENT: Nose and ears atraumatic Neck: No thyromegaly, supple Mouth: no lip lesion, mucus membranes moist Cardiovascular: S1S2 reg, systolic murmur, no edema Lungs: clear to auscultation bilateral, no rhonchi, no rales, no wheeze, no accessory muscle use Abdominal: soft, nontender to palpation, no guarding, no appreciable organo megaly Ext: Right hemiparesis, right shoulder bruising Neuro: Right-sided facial droop, aphasia and dysarthria Psych: Alert, not following commands Data Reviewed Today: Pertinent Labs: Blood sugars range between 88-202 Imaging: Repeat brain CT showed large left MCA territory nonhemorrhagic subacute infarction Assessment and Plan: Active: Acute/subacute left MCA stroke, likely embolic Left vertebral artery occlusion 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 Leukocytosis, reactive, resolved Mild rhabdomyolysis, resolved Anion gap metabolic acidosis, improving Type 2 diabetes with hyperglycemia Hypertension Dyslipidemia -Cardiology consulted by neurology, may need CARLOS -On aspirin 81 mg, atorvastatin 80 mg -Neurology following, repeat CT -Restarted amlodipine 10 mg, Coreg 6.25 twice daily, lisinopril 10 mg daily added -Continue on sliding scale insulin, continue 20 units of home Levemir -PT/OT/speech therapy -IPR consult Chronic: History of CAD Carotid artery disease Peripheral arterial disease Depression DVT ppx: Subcu heparin Code status: Full code Anticipated discharge place: Pending clinical course Anticipated discharge time: Pending clinical course Objective - Vital Signs Vital signs: Vital Signs Temp 98.6 F 10/22/23 11:28 Pulse 60 10/22/23 11:28 Resp 16 10/22/23 11:28 BP 162/83 10/22/23 11:28 Pulse Ox 98 10/22/23 11:28 FiO2 Intake & Output 10/21/23 10/22/23 10/22/23 18:59 06:59 18:59 Intake Total 118 30 Output Total 1800 Balance 118 -1800 30 Intake: Oral 118 30 Output: Urine 1800 Other: Voiding Method Indwelling Catheter Indwelling Catheter Indwelling Catheter # Bowel Movements 1 1 - Labs CBC & Chem 7: 10/21/23 08:36 10/21/23 08:36 Labs: Abnormal Lab Results - Last 24 Hours (Table) 10/21/23 10/21/23 10/21/23 Range/Units 08:36 16:19 19:51 POC Glucose (mg/dL) 153 H 202 H (70-110) mg/dL Creatine Kinase 471 H (55-170) U/L
[2023-10-22 16:34] LABS: Glucose,Whole Blood 104 mg/dL (70-110)
[2023-10-22] MEDS: lisinopriL 10 MG TAB PO SCH (18:28)
[2023-10-22 20:17] LABS: Glucose,Whole Blood 213 mg/dL (70-110)
[2023-10-23 06:15] LABS: Glucose,Whole Blood 100 mg/dL (70-110)
--- NOTE | 2023-10-23 09:58 | P.PN ---
Subjective Progress Note Date: 10/22/23 10/22/2023: Patient was seen for a follow-up. Patient is doing much better, having able to feed himself. Nurse was also present also agrees that he is doing much better. Patient offers no complaints. 10/21/2023: Patient was seen for follow-up. Patient's brother was also present, who provided with the further history. Patient's brother states that patient has been diagnosed with 3 cerebral aneurysms, and he gets workup at [facility]. He was considered for endovascular coiling of an aneurysm, but they wanted to do more imaging, but patient ended up here. Patient lives by himself. He has 2 daughters, which are out of state. Patient's brother often checks on him. He also has Meals on Wheels, twice a day. He apparently was fine Wednesday afternoon at 4 PM to answer to the doorbell for Meals on Wheels. Patient stroke happen sometimes after 4 PM Wednesday to the time on Wednesday at 1:29 PM when he was discovered in his bedroom on the floor, and brought to the hospital by ambulance. He mentions that patient has history of diabetes for 2 years. Patient has history of a "mini stroke", affected vision right eye, but it came back. Patient does have memory issues, which is slightly more than his expected age. His memory disturbance "comes and goes". Patient has smoked less than 1 pack/day since age 16. Patient also used to drink heavily for about 25 years, quit 12 years ago. Objective - Vital Signs Vital signs: Vital Signs Temp 98.6 F 10/22/23 11:28 Pulse 60 10/22/23 11:28 Resp 16 10/22/23 11:28 BP 162/83 10/22/23 11:28 Pulse Ox 98 10/22/23 11:28 FiO2 Intake & Output 10/21/23 10/22/23 10/22/23 18:59 06:59 18:59 Intake Total 118 30 Output Total 1800 Balance 118 -1800 30 Intake: Oral 118 30 Output: Urine 1800 Other: Voiding Method Indwelling Catheter Indwelling Catheter Indwelling Catheter # Bowel Movements 1 1 - Exam Patient is more alert and awake, still very aphasic, not able to name any objects, or repeat. He is speaking slightly more better spontaneous phrases. On cranial examination his pupils are equal, round and reactive to light. He has right visual field deficit, homonymous type. Patient has mild right facial asymmetry. Tongue protrudes to the midline. On muscle strength testing, there is very mild right pronator drift. Strength appears grossly equal and normal in the arms. In the lower limbs (right/left) hip flexion 5-/5, ankle dorsiflexion 4+/5. Patient has Babinski on the right side. - Labs CBC & Chem 7: 10/21/23 08:36 10/21/23 08:36 Labs: Abnormal Lab Results - Last 24 Hours (Table) 10/21/23 10/21/23 10/21/23 Range/Units 08:36 16:19 19:51 POC Glucose (mg/dL) 153 H 202 H (70-110) mg/dL Creatine Kinase 471 H (55-170) U/L Assessment and Plan Assessment: * Acute ischemic stroke, left MCA territory, probably embolic. CTA revealed abrupt cut off of the left M3 segment of the left MCA. Patient was not a candidate for tPA or thrombectomy. 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 This is clinically asymptomatic at this time. * Hypertension * Hyperlipidemia * Tobacco use. Plan: Patient has presented with an acute stroke, likely embolic. Rule out cardiac source. Await cardiology consultation. Suggest CARLOS because of embolic stroke, and abnormal echo. Repeat CT head 10/22/2023 revealed large left MCA territory nonhemorrhagic subacute infarction. I personally reviewed CT head agree with the findings. Patient used to be on aspirin 81 mg daily. We will add Plavix 75 mg daily star ting from tomorrow. 2-D echo revealed moderately increased septal wall thickness. Basal septal and basal inferior wall hypokinesis. EF is 50 to 55%. Left atrial size is normal. CTA head and neck showed: Abrupt cut off of the left M3 segment of the MCA suggested on sagittal imaging. Mild motion artifact. 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 Occlusion of the left vertebral artery at the level of C2 and extending into the intracranial portion with reconstitution. No evidence of dissection occlusion of the cervical internal carotid arteries. As per patient's brother's report, patient has been diagnosed with 3 aneurysms, and he was recently in the process of getting endovascular coiling of one of the aneurysm at [facility], but he ended up in this hospital with acute stroke. Patient need to follow-up with his neurointervention outpatient at [facility]. Fasting a.m. lipid panel cholesterol 289, LDL 222, HDL 41, triglycerides 126. Agree with starting high intensity statins Lipitor 80 mg daily. Hemoglobin A1c 7.4. Recommend optimize control of diabetes to target A1c <7.0. Gradually optimize control of blood pressure. Continue aspirin 81 mg daily. It appears patient was taking aspirin 81 mg at home. Avoid DAPT because of risk of hemorrhagic conversion. Neuro checks every 4 hours. Telemetry monitoring rule out any arrhythmia PT, OT, speech therapy DVT prophylaxis: Heparin 5000 units subcu every 8 hours Tobacco cessation. Discussed with patient's brother in detail.
[2023-10-23] MEDS: CLOPIDOGREL 75 MG TAB PO SCH (10:54)
[2023-10-23 11:49] LABS: Glucose,Whole Blood 162 mg/dL (70-110)
--- NOTE | 2023-10-23 15:11 | P.CRDCN ---
History of Present Illness History of present illness: HISTORY OF PRESENTING ILLNESS This is a pleasant 68-year-old male past medical history significant for coronary artery disease status post two-vessel bypass grafting, hypertension, dyslipidemia, diabetes mellitus and chronic nicotine dependence. He follows in the office with Dr. Hoskins. We have been asked to see in consultation for CARLOS secondary to embolic stroke. He presented to the hospital after being found down covered in feces and urine at home. CT imaging reveals he suffered an embolic stroke, large of the left MCA territory nonhemorrhagic. We have been consulted to perform a CARLOS. Transthoracic echo revealed EF 50-55% with basal septal and inferior septal hypokinesia. He is seen and examined resting comfortably in bed in no acute distress. He has sensory aphasia with word salad. He is not answering questions appropriately. DIAGNOSTICS EKG reveals sinus tach heart rate of 104. Telemetry tracings indicate sinus rhythm. Chest xray low lung volumes with generalized hazy appearance. Laboratory reviewed, CBC unremarkable, sodium 137, potassium 4.1, creatinine 0.86. Current cardiac medications include Coreg 6.25 mg twice a day, amlodipine 10 mg daily, atorvastatin 80 mg daily and aspirin 81 mg daily. REVIEW OF SYSTEMS At the time of my exam: Unable to obtain accurate review of systems secondary to mental status. PHYSICAL EXAMINATION Blood pressure 142/68 heart rate 63 afebrile and maintaining oxygen saturation on room air. CONSTITUTIONAL: No apparent distress. HEENT: Head is normocephalic. Pupils are equal, round. Sclerae anicteric. Mucous membranes of the mouth are moist. No JVD. No carotid bruit. CHEST EXAMINATION: Lungs are clear to auscultation. No chest wall tenderness is noted on palpation or with deep breathing. HEART EXAMINATION: Regular rate and rhythm. S1, S2 heard. No murmurs, gallops or rub. ABDOMEN: Soft, nontender. EXTREMITIES: 2+ peripheral pulses, no lower extremity edema and no calf tenderness. NEUROLOGIC EXAMINATION: Patient is awake, alert and disoriented with sensory aphasia ASSESSMENT Acute embolic CVA Coronary artery disease status post bypass grafting Hypertension Dyslipidemia Diabetes mellitus Chronic nicotine dependence PLAN Dr. Rios is requesting a CARLOS. This will be performed on Wednesday. Nothing by mouth after midnight Wednesday night. Recommend 30 day event monitor upon discharge. Called and spoke to his sister about the procedure to obtain consent. Explained the procedure in detail along with risks, benefits and alternative approaches to his sister Willa and answered questions to her liking. She will be in tomorrow to sign the consent. Thank you kindly for this consultation. Nurse Practitioner note has been reviewed, I agree with a documented findings and plan of care. Patient was seen and examined. Past Medical History Past Medical History: Coronary Artery Disease (CAD), Chest Pain / Angina, Heart Failure, COPD, CVA/TIA, Diabetes Mellitus, Hypertension, Myocardial Infarction (CA), Sleep Apnea/CPAP/BIPAP Additional Past Medical History / Comment(s): Routine colonoscopy, past polyp, IDDM type II, TIA, sleep apnea- has cpap at home but doesn't wear. 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 Last Myocardial Infarction Date:: unknown-about 1999 History of Any Multi-Drug Resistant Organisms: MRSA Date of last positivie culture/infection: 2019 MDRO Source:: chest Past Surgical History: Coronary Bypass/CABG, Heart Catheterization Additional Past Surgical History / Comment(s): CABG 4 vessel, vasectomy Past Anesthesia/Blood Transfusion Reactions: No Reported Reaction Smoking Status: Current every day smoker - Past Family History Father Family Medical History: COPD Medications and Allergies Home Medications Medication Instructions Recorded Confirmed Type Aspirin EC [Ecotrin Low Dose] 81 mg PO DAILY 10/11/22 10/19/23 History Sertraline [Zoloft] 100 mg PO DAILY 10/11/22 10/19/23 History carvediloL [Coreg] 6.25 mg PO BID-W/MEALS #60 tab 10/14/22 10/19/23 Rx Insulin Aspart [NovoLOG Flexpen] 10 units SQ AC-TID 06/15/23 10/19/23 History Insulin Glargine,Hum.rec.anlog 20 units SQ HS 06/15/23 10/19/23 History [Lantus Solostar Pen] amLODIPine [Norvasc] 10 mg PO DAILY 06/15/23 10/19/23 History Atorvastatin [Lipitor] 80 mg PO DAILY 10/19/23 10/19/23 History Doxycycline Hyclate 100 mg PO BID 10/19/23 10/19/23 History traZODone HCL [Desyrel] 75 mg PO HS 10/19/23 10/19/23 History Allergies Allergy/AdvReac Type Severity Reaction Status Date / Time iodine Allergy Severe Anaphylaxis Verified 10/19/23 14:13 shellfish derived [Shellfish] Allergy Severe Anaphylaxis Verified 10/19/23 14:13 Physical Exam Vitals: Vital Signs Temp Pulse Resp BP Pulse Ox 10/23/23 11:33 63 16 142/68 99 10/23/23 08:00 98.7 F 67 18 138/64 99 10/23/23 03:25 98.2 F 60 16 141/65 97 10/22/23 23:42 98.3 F 64 18 166/83 100 10/22/23 19:27 98.1 F 71 16 135/72 10/22/23 17:01 68 16 10/22/23 16:30 98.0 F 68 16 152/82 99 Intake and Output 10/22/23 10/23/23 10/23/23 22:59 06:59 14:59 Intake Total 712 Output Total 600 450 Balance -600 262 Intake: Oral 712 Output: Urine 600 450 Other: Voiding Method Indwelling Catheter Indwelling Catheter Toilet Urinal # Voids 1 # Bowel Movements 1 Results 10/21/23 08:36 10/21/23 08:36 Current Medications Generic Name Dose Route Start Last Admin Trade Name Freq PRN Reason Stop Dose Admin Amlodipine Besylate 10 mg 10/22/23 09:00 10/23/23 09:03 Amlodipine 10 Mg Tab PO 10 mg DAILY TYESHA Administration Aspirin 81 mg 10/20/23 09:00 10/23/23 09:03 Aspirin 81 Mg PO 81 mg DAILY TYESHA Administration Atorvastatin Calcium 80 mg 10/19/23 21:00 10/22/23 22:39 Atorvastatin 80 Mg Tab PO 80 mg HS TYESHA Administration Carvedilol 6.25 mg 10/21/23 17:30 10/23/23 06:19 Carvedilol 6.25 Mg Tab PO 6.25 mg BID-W/MEALS TYESHA Administration Clopidogrel Bisulfate 75 mg 10/23/23 10:00 10/23/23 10:54 Clopidogrel 75 Mg Tab PO 75 mg DAILY TYESHA Administration Dextrose/Water 25 ml 10/19/23 17:44 Dextrose 50% Syringe 50 Ml IVP PER PROTOCOL PRN Hypoglycemia Protocol Dextrose/Water 50 ml 10/19/23 17:44 Dextrose 50% Syringe 50 Ml IVP PER PROTOCOL PRN Hypoglycemia Protocol Heparin Sodium (Porcine) 5,000 unit 10/20/23 16:00 10/23/23 09:03 Heparin Sodium,Porcine 5,000 Unit/Ml 1 Ml Vial SQ 5,000 unit Q8HR TYESHA Administration Sodium Chloride 1,000 mls @ 100 mls/hr 10/19/23 17:15 10/23/23 10:43 Saline 0.9% IV Not Given .Q10H TYESHA Insulin Aspart 0 unit 10/19/23 21:00 10/23/23 11:52 Insulin Aspart (Novolog) 100 Unit/Ml Vial SQ 2 unit ACHS TYESHA Administration Protocol Insulin Detemir 20 unit 10/21/23 21:00 10/22/23 22:39 Insulin Detemir (Levemir) 100 Unit/Ml Syr SQ 20 unit HS TYESHA Administration Lisinopril 10 mg 10/22/23 13:15 10/23/23 09:03 Lisinopril 10 Mg Tab PO 10 mg DAILY TYESHA Administration Nicotine 1 patch 10/22/23 09:00 10/23/23 09:03 Nicotine 21mg/24hr Patch TRANSDERM 1 patch DAILY TYESHA Administration Sertraline HCl 100 mg 10/22/23 09:00 10/23/23 09:03 Sertraline 100 Mg Tab PO 100 mg DAILY TYESHA Administration Intake and Output 10/22/23 10/23/23 10/23/23 22:59 06:59 14:59 Intake Total 712 Output Total 600 450 Balance -600 262 Intake: Oral 712 Output: Urine 600 450 Other: Voiding Method Indwelling Catheter Indwelling Catheter Toilet Urinal # Voids 1 # Bowel Movements 1 10/21/23 08:36 10/21/23 08:36
--- NOTE | 2023-10-23 16:05 | P.PN ---
Subjective Progress Note Date: 10/23/23 (delayed charting seen at 0945) Patient is a 68-year-old male with history of coronary artery disease status post CABG, carotid arterial disease, peripheral arterial disease, type 2 diabetes, hypertension, nicotine dependency, and dyslipidemia who presented to the emergency department with unresponsiveness. In the ER he underwent extensive evaluation. Initial vitals were remarkable for a pulse of 101 and respiratory rate of 22 with blood pressure of 183/138. Laboratory analysis was remarkable for white blood cell count of 12.1, hemoglobin 16.9 and CK of 475. He underwent CT of the head which showed an acute or subacute CVA of the left MCA territory with nonspecific white matter changes. CTA of the brain demonstrated an abrupt cut off of the M3 segment of the MCA, occlusion of the l eft vertebral artery at level of the C2, and saccular aneurysm of the right internal carotid artery. He was admitted and was seen by neurology. He underwent echocardiogram which showed left ventricular systolic function of 50 to 55% with moderately increased septal wall thickening and basal inferior hypokinesis. He was continued on aspirin and Plavix. He underwent repeat head CT on 10/21/2023 which showed large left MCA territory nonhemorrhagic subacute infarction. Neurology felt like this was consistent with an embolic CVA and therefore cardiology was consulted for possible CARLOS. Patient seen and examined at bedside. Patient seen and examined at bedside. He is able to follow commands but is not able to answer questions. Vital signs reviewed General: Nontoxic, no distress, appears at stated age Cardiovascular: S1S2 reg, no murmur Lungs: CTA bilateral, no rhonchi, no rales, no accessory muscle use Abdominal: Soft, nontender to palpation, no guarding Ext: No gross muscle atrophy, no edema b/l lower extremities, no contractures Neuro: CN II-XI grossly intact, moving all 4 extremities independently Psych: Awake, when you ask him what year it is he mumbles incoherently, when you ask him where he is at the same thing happens, he is unable to name objects. 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 Anion gap metabolic acidosis, improving Type 2 diabetes with hyperglycemia Hypertension Dyslipidemia -Aspirin 81 mg, atorvastatin 80 mg -Amlodipine 10 mg, Coreg 6.25 twice daily, lisinopril 10 mg daily added, A1c 7.4 -Continue on sliding scale insulin, continue 20 units of home Levemir -PT/OT/speech therapy recommendations -IPR consult reviewed: Anticipate patient to discharge to IPR -Cardiology consultation reviewed: CARLOS on Wednesday -Await further neurology recs -Will need outpatient follow[facility] -Continue with normal saline at 100 cc/h Chronic: History of CAD Carotid artery disease Peripheral arterial disease Depression Leukocytosis, reactive, resolved Mild rhabdomyolysis, resolved Imaging: None new Data Review: A.m. fasting blood sugar 100 DVT prophylaxis: Heparin subcutaneous Anticipated discharge place: Inpatient rehab Anticipated discharge time: Pending clinical course This dictation was prepared using [employer] voice recognition software. Though every attempt is made to correct errors during dictation some may still exist. Objective - Vital Signs Vital signs: Vital Signs Temp 98.7 F 10/23/23 08:00 Pulse 63 10/23/23 11:33 Resp 16 10/23/23 11:33 BP 142/68 10/23/23 11:33 Pulse Ox 99 10/23/23 11:33 FiO2 Intake & Output 10/22/23 10/23/23 10/23/23 18:59 06:59 18:59 Intake Total 148 712 Output Total 350 600 450 Balance -202 -600 262 Intake: Oral 148 712 Output: Urine 350 600 450 Other: Voiding Method Indwelling Catheter Indwelling Catheter Toilet Urinal # Voids 1 # Bowel Movements 1 1 - Labs CBC & Chem 7: 10/21/23 08:36 10/21/23 08:36 Labs: Abnormal Lab Results - Last 24 Hours (Table) 10/22/23 10/23/23 Range/Units 20:16 11:47 POC Glucose (mg/dL) 213 H 162 H (70-110) mg/dL
[2023-10-23 16:42] LABS: Glucose,Whole Blood 84 mg/dL (70-110)
[2023-10-23 20:02] LABS: Glucose,Whole Blood 117 mg/dL (70-110)
[2023-10-24 06:06] LABS: Glucose,Whole Blood 86 mg/dL (70-110)
[2023-10-24 08:58] LABS: African American GFR (CKD) >90 (>60 ml/min/1.73 sqM); Anion Gap 6 mmol/L; Blood Urea Nitrogen 15 mg/dL (9-20); Calcium 9.5 mg/dL (8.4-10.2); Carbon Dioxide 28 mmol/L (22-30); Chloride 106 mmol/L (98-107); Glucose 104 mg/dL (74-99); Non-African American GFR(CKD) 88 (>60 ml/min/1.73 sqM); Potassium 4.5 mmol/L (3.5-5.1); Sodium 140 mmol/L (137-145)
[2023-10-24 09:03] LABS: HCT 46.9 % (39.0-53.0); MCH 31.6 pg (25.0-35.0); MCHC 34.2 g/dL (31.0-37.0); MCV 92.3 fL (80.0-100.0); Mean Platelet Volume 9.3; Platelet Count 221 k/uL (150-450); RBC 5.09 m/uL (4.30-5.90); WBC 8.3 k/uL (3.8-10.6)
--- NOTE | 2023-10-24 09:46 | P.PN ---
Subjective Progress Note Date: 10/23/23 10/23/2023. Patient was seen for a follow-up. Patient is speaking slightly much more better. Patient appears comfortable. Offers no complaints. 10/22/2023: Patient was seen for a follow-up. Patient is doing much better, having able to feed himself. Nurse was also present also agrees that he is doing much better. Patient offers no complaints. 10/21/2023: Patient was seen for follow-up. Patient's brother was also present, who provided with the further history. Patient's brother states that patient has been diagnosed with 3 cerebral aneurysms, and he gets workup at [facility]. He was considered for endovascular coiling of an aneurysm, but they wanted to do more imaging, but patient ended up here. Patient lives by himself. He has 2 daughters, which are out of state. Patient's brother often checks on him. He also has Meals on Wheels, twice a day. He apparently was fine Wednesday afternoon at 4 PM to answer to the doorbell for [employer] Whe[employer]. Patient stroke happen sometimes after 4 PM Wednesday to the time on Wednesday at 1:29 PM when he was discovered in his bedroom on the floor, and brought to the hospital by ambulance. He mentions that patient has history of diabetes for 2 years. Patient has history of a "mini stroke", affected vision right eye, but it came back. Patient does have memory issues, which is slightly more than his expected age. His memory disturbance "comes and goes". Patient has smoked less than 1 pack/day since age 16. Patient also used to drink heavily for about 25 years, quit 12 years ago. Objective - Vital Signs Vital signs: Vital Signs Temp 98.7 F 10/23/23 08:00 Pulse 63 10/23/23 11:33 Resp 16 10/23/23 11:33 BP 142/68 10/23/23 11:33 Pulse Ox 99 10/23/23 11:33 FiO2 Intake & Output 10/22/23 10/23/23 10/23/23 18:59 06:59 18:59 Intake Total 148 712 Output Total 350 600 450 Balance -202 -600 262 Intake: Oral 148 712 Output: Urine 350 600 450 Other: Voiding Method Indwelling Catheter Indwelling Catheter Toilet Urinal # Voids 1 # Bowel Movements 1 1 - Exam Patient is more alert and awake. Patient has significant paraphasic errors. On showing a pen, patient states "tie". When I showed him eyeglasses, patient said "teeth". He cannot repeat. He is speaking slightly more better spontaneous phrases. On cranial examination his pupils are equal, round and reactive to light. He has right visual field deficit, homonymous type. Patient has mild right facial asymmetry. Tongue protrudes to the midline. On muscle strength testing, there no definitive pronator drift. Strength appears grossly equal and normal in the arms. In the lower limbs (right/left) hip flexion 5-/5, ankle dorsiflexion 4+/5. Patient has Babinski on the right side. - Labs CBC & Chem 7: 10/24/23 08:21 10/24/23 08:21 Labs: Abnormal Lab Results - Last 24 Hours (Table) 10/22/23 10/23/23 Range/Units 20:16 11:47 POC Glucose (mg/dL) 213 H 162 H (70-110) mg/dL Assessment and Plan Assessment: * Acute ischemic stroke, left MCA territory, probably embolic. CTA revealed abrupt cut off of the left M3 segment of the left MCA. Patient was not a candidate for tPA or thrombectomy. 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 This is clinically asymptomatic at this time. * Hypertension * Hyperlipidemia * Tobacco use. Plan: Patient has presented with an acute stroke, likely embolic. Rule out cardiac source. Appreciate cardiac input. Possible CARLOS on Wednesday. Agree with 30-day event monitoring, rule out paroxysmal atrial fibrillation. Repeat CT head 10/22/2023 revealed large left MCA territory nonhemorrhagic subacute infarction. I personally reviewed CT head agree with the findings. Patient used to be on aspirin 81 mg daily. We will add Plavix 75 mg daily starting from tomorrow. 2-D echo revealed moderately increased septal wall thickness. Basal septal and basal inferior wall hypokinesis. EF is 50 to 55%. Left atrial size is normal. CTA head and neck showed: Abrupt cut off of the left M3 segment of the MCA suggested on sagittal imaging. Mild motion artifact. 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 Occlusion of the left vertebral artery at the level of C2 and extending into the intracranial portion with reconstitution. No evidence of dissection occlusion of the cervical internal carotid arteries. As per patient's brother's report, patient has been diagnosed with 3 aneurysms, and he was recently in the process of getting endovascular coiling of one of the aneurysm at [facility], but he ended up in this hospital with acute stroke. Patient need to follow-up with his neurointervention outpatient at [facility]. Fasting a.m. lipid panel cholesterol 289, LDL 222, HDL 41, triglycerides 126. Agree with starting high intensity statins Lipitor 80 mg daily. Hemoglobin A1c 7.4. Recommend optimize control of diabetes to target A1c <7.0. Gradually optimize control of blood pressure. Neuro checks every 4 hours. Telemetry monitoring rule out any arrhythmia PT, OT, speech therapy DVT prophylaxis: Heparin 5000 units subcu every 8 hours Tobacco cessation.
[2023-10-24 11:43] LABS: Glucose,Whole Blood 127 mg/dL (70-110)
--- NOTE | 2023-10-24 13:56 | P.PN ---
Subjective Progress Note Date: 10/24/23 (delayed charting seen at 0930) Patient is a 68-year-old male with history of coronary artery disease status post CABG, carotid arterial disease, peripheral arterial disease, type 2 diabetes, hypertension, nicotine dependency, and dyslipidemia who presented to the emergency department with unresponsiveness. In the ER he underwent extensive evaluation. Initial vitals were remarkable for a pulse of 101 and respiratory rate of 22 with blood pressure of 183/138. Laboratory analysis was remarkable for white blood cell count of 12.1, hemoglobin 16.9 and CK of 475. He underwent CT of the head which showed an acute or subacute CVA of the left MCA territory with nonspecific white matter changes. CTA of the brain demonstrated an abrupt cut off of the M3 segment of the MCA, occlusion of the l eft vertebral artery at level of the C2, and saccular aneurysm of the right internal carotid artery. He was admitted and was seen by neurology. He underwent echocardiogram which showed left ventricular systolic function of 50 to 55% with moderately increased septal wall thickening and basal inferior hypokinesis. He was continued on aspirin and Plavix. He underwent repeat head CT on 10/21/2023 which showed large left MCA territory nonhemorrhagic subacute infarction. Neurology felt like this was consistent with an embolic CVA and therefore cardiology was consulted for possible CARLOS. Patient seen and examined at bedside. He continues to have word salad speech. Unable to follow simple questions. I asked nurse to obtain a communication board. Vital signs reviewed General: Nontoxic, no distress, appears at stated age Cardiovascular: S1S2 reg, no murmur Lungs: CTA bilateral, no rhonchi, no rales, no accessory muscle use Abdominal: Soft, nontender to palpation, no guarding Ext: No gross muscle atrophy, no edema b/l lower extremities, no contractures Neuro: CN II-XI grossly intact, moving all 4 extremities independently Psych: Awake, unable to anser questions or name objects, when asked to shows thumbs up he fumbles with his hand, unable to close his eyes and keep them closed, is able to follow instructions to take a deep breath. 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 30-day event monitor on discharge. -Neurology note reviewed: Await CARLOS . Continue with 80 mg daily, Plavix 75 mg starting 10/24/2023. -Will need outpatient follow-up with [facility] -Continue with normal saline at 100 cc/h Chronic: History of CAD Carotid artery disease Peripheral arterial disease Depression Leukocytosis, reactive, resolved Mild rhabdomyolysis, resolved Imaging: None new Data Review: Labs reviewed from today include CBC and basic metabolic profile which are unre markable DVT prophylaxis: Heparin subcutaneous Anticipated discharge place: Inpatient rehab Anticipated discharge time: Pending clinical course This dictation was prepared using [employer] voice recognition software. Though every attempt is made to correct errors during dictation some may still exist. Objective - Vital Signs Vital signs: Vital Signs Temp 97.9 F 10/24/23 08:00 Pulse 65 10/24/23 12:00 Resp 20 10/24/23 12:00 BP 114/56 10/24/23 12:00 Pulse Ox 97 10/24/23 12:00 FiO2 Intake & Output 10/23/23 10/24/23 10/24/23 18:59 06:59 18:59 Intake Total 712 118 540 Output Total 450 Balance 262 118 540 Intake: Oral 712 118 540 Output: Urine 450 Other: Voiding Method Toilet Toilet Toilet Urinal Urinal # Voids 1 3 2 # Bowel Movements 1 1 - Labs CBC & Chem 7: 10/24/23 08:21 10/24/23 08:21 Labs: Abnormal Lab Results - Last 24 Hours (Table) 10/23/23 10/24/23 10/24/23 Range/Units 20:01 08:21 11:42 Glucose 104 H (74-99) mg/dL POC Glucose (mg/dL) 117 H 127 H (70-110) mg/dL
[2023-10-24 16:35] LABS: Glucose,Whole Blood 119 mg/dL (70-110)
[2023-10-24 19:48] LABS: Glucose,Whole Blood 172 mg/dL (70-110)
--- NOTE | 2023-10-25 00:14 | P.PN ---
Subjective Progress Note Date: 10/24/23 10/24/2023: Patient was seen for a follow-up. Patient is alert and awake. Please refer to examination below. Patient is laying comfortably in the bed. 10/23/2023. Patient was seen for a follow-up. Patient is speaking slightly much more better. Patient appears comfortable. Offers no complaints. 10/22/2023: Patient was seen for a follow-up. Patient is doing much better, having able to feed himself. Nurse was also present also agrees that he is do ing much better. Patient offers no complaints. 10/21/2023: Patient was seen for follow-up. Patient's brother was also present, who provided with the further history. Patient's brother states that patient has been diagnosed with 3 cerebral aneurysms, and he gets workup at [facility]. He was considered for endovascular coiling of an aneurysm, but they wanted to do more imaging, but patient ended up here. Patient lives by himself. He has 2 daughters, which are out of state. Patient's brother often checks on him. He also has Meals on Wheels, twice a day. He apparently was fine Wednesday afternoon at 4 PM to answer to the doorbell for [employer] Whe[employer]. Patient stroke happen sometimes after 4 PM Wednesday to the time on Wednesday at 1:29 PM when he was discovered in his bedroom on the floor, and brought to the hospital by ambulance. He mentions that patient has history of diabetes for 2 years. Patient has history of a "mini stroke", affected vision right eye, but it came back. Patient does have memory issues, which is slightly more than his expected age. His memory disturbance "comes and goes". Patient has smoked less than 1 pack/day since age 16. Patient also used to drink heavily for about 25 years, quit 12 years ago. Objective - Vital Signs Vital signs: Vital Signs Temp 98.6 F 10/24/23 19:30 Pulse 68 10/24/23 19:30 Resp 18 10/24/23 19:30 BP 109/64 10/24/23 19:30 Pulse Ox 97 10/24/23 19:30 FiO2 Intake & Output 10/24/23 10/24/23 10/25/23 06:59 18:59 06:59 Intake Total 118 1140 Balance 118 1140 Intake: Oral 118 1140 Other: Voiding Method Toilet Toilet Toilet Urinal # Voids 3 1 # Bowel Movements 1 - Exam Patient is more alert and awake. On saying hello, patient said "hi". Patient said "okay". On asking his name, patient said "good". Patient nods yes for everything like headache, chest pain, belly pain. He cannot repeat. On cranial examination his pupils are equal, round and reactive to light. He has right visual field deficit, homonymous type. Patient has mild right facial asymmetry. Tongue protrudes to the midline. On muscle strength testing, there no definitive pronator drift. Strength appears grossly equal and normal in the arms. In the lower limbs (right/left) hip flexion 5-/5, ankle dorsiflexion 4+/5. Patient has Babinski on the right side. - Labs CBC & Chem 7: 10/24/23 08:21 10/24/23 08:21 Labs: Abnormal Lab Results - Last 24 Hours (Table) 10/24/23 10/24/23 10/24/23 Range/Units 08:21 11:42 16:33 Glucose 104 H (74-99) mg/dL POC Glucose (mg/dL) 127 H 119 H (70-110) mg/dL 10/24/23 Range/Units 19:46 Glucose (74-99) mg/dL POC Glucose (mg/dL) 172 H (70-110) mg/dL Assessment and Plan Assessment: * Acute ischemic stroke, left MCA territory, probably embolic. CTA revealed abr upt cut off of the left M3 segment of the left MCA. Patient was not a candidate for tPA or thrombectomy. 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 This is clinically asymptomatic at this time. * Hypertension * Hyperlipidemia * Tobacco use. Plan: Patient has presented with an acute stroke, likely embolic. Rule out cardiac source. Appreciate cardiac input. Possible CARLOS on Wednesday. Agree with 30-day event monitoring, rule out paroxysmal atrial fibrillation. Repeat CT head 10/22/2023 revealed large left MCA territory nonhemorrhagic subacute infarction. I personally reviewed CT head agree with the findings. Patient used to be on aspirin 81 mg daily. We will add Plavix 75 mg daily sta rting from tomorrow. 2-D echo revealed moderately increased septal wall thickness. Basal septal and basal inferior wall hypokinesis. EF is 50 to 55%. Left atrial size is normal. CTA head and neck showed: Abrupt cut off of the left M3 segment of the MCA suggested on sagittal imaging. Mild motion artifact. 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 Occlusion of the left vertebral artery at the level of C2 and extending into the intracranial portion with reconstitution. No evidence of dissection occlusion of the cervical internal carotid arteries. As per patient's brother's report, patient has been diagnosed with 3 aneurysms, and he was recently in the process of getting endovascular coiling of one of the aneurysm at [facility], but he ended up in this hospital with acute stroke. Patient need to follow-up with his neurointervention outpatient at [facility]. Fasting a.m. lipid panel cholesterol 289, LDL 222, HDL 41, triglycerides 126. Agree with starting high intensity statins Lipitor 80 mg daily. Hemoglobin A1c 7.4. Recommend optimize control of diabetes to target A1c <7.0. Gradually optimize control of blood pressure. Neuro checks every 4 hours. Telemetry monitoring so far showing sinus rhythm, sinus bradycardia, with some PVCs, couplets, triplets and had a 4 beat run of V. tach. Cardiology on board. PT, OT, speech therapy DVT prophylaxis: Heparin 5000 units subcu every [address] Alec Crouch to resume neurology service in the morning.
[2023-10-25 03:25] VITALS: TEMP 98.1
[2023-10-25 06:15] LABS: Glucose,Whole Blood 73 mg/dL (70-110)
[2023-10-25 09:33] VITALS: BP 119/74; PULSE 64; RESP 18
[2023-10-25] MEDS: BENZOCAINE SPRAY 1 CAN TOPICAL ONE (10:30)
[2023-10-25] MEDS: SODIUM CHLORIDE 0.9% 500 ML 500 ML IV ONE (10:30)
[2023-10-25] MEDS: fentaNYL (PF) 50 MCG/ML 2 ML AMP IVP ONE (10:32)
[2023-10-25] MEDS: MIDAZOLAM 2 MG/2 ML VIAL IVP ONE (10:32)
[2023-10-25 11:54] LABS: Glucose,Whole Blood 83 mg/dL (70-110)
[2023-10-25 12:35] VITALS: BMI 25.4
--- NOTE | 2023-10-25 14:38 | P.DS ---
Providers Date of admission: 10/19/23 17:16 Expected date of discharge: 10/25/23 Attending physician: Leon Ayoub MD Consults: 10/19/23 17:23 Consult Physician Routine Consulting Provider: Bebe Stanton Consult Reason/Comments: CVA Do you want consulting provider notified?: Yes 10/21/23 10:04 Consult Physician Routine Consulting Provider: Milton Brock Consult Reason/Comments: Eval for IPR Do you want consulting provider notified?: Yes 10/22/23 10:13 Consult Physician Routine Consulting Provider: Earl Wright Consult Reason/Comments: Embolic stroke, abnormal 2D echo, consider CARLOS Do you want consulting provider notified?: Yes Primary care physician: [facility] Hospital Course: Discharge Diagnosis: Acute/subacute left MCA stroke, 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 In the ER he underwent extensive evaluation. Initial vitals were remarkable for a pulse of 101 and respiratory rate of 22 with blood pressure of 183/138. Laboratory analysis was remarkable for white blood cell count of 12.1, hemoglobin 16.9 and CK of 475. He underwent CT of the head which showed an acute or subacute CVA of the left MCA territory with nonspecific white matter changes. CTA of the brain demonstrated an abrupt cut off of the M3 segment of the MCA, occlusion of the left vertebral artery at level of the C2, and saccular aneurysm of the right internal carotid artery. He was admitted and was seen by neurology. He underwent echocardiogram which showed left ventricular systolic function of 50 to 55% with moderately increased septal wall thickening and basal inferior hypokinesis. He was continued on aspirin and Plavix. He underwent repeat head CT on 10/21/2023 which showed large left MCA territory nonhemorrhagic subacute infarction. Patient was started on Plavix on 10/23 with no worsening of his neurologic symptoms. Neurology felt like this was consistent with an embolic CVA and therefore cardiology was consulted for possible CARLOS. Verbal report of CARLOS showed that there was no PFO and no left ventricular thrombus. Patient was therefore determined stable for discharge to inpatient rehab once 30-day event monitor placed. Follow-up: Patient transferred to inpatient rehab after placement of event monitor. On discharge she will need to follow-up with Dr. Hoskins for results of event sanya penny, his neurologist from the CT, and his neuro interventionalists from the CT. Plavix should be continued life long given the significance of his stroke while on aspirin. Heart healthy carb consistent diet, activity as tolerated with fall precautions, continue with speech therapy. Check Accu-Cheks in the morning and with meals. Will need to follow-up with his neurologist or Dr. Jean after discharge. Should also follow-up with his neuro interventionalists after discharge. Patient seen and examined at bedside. His speech remains nonsensical Vital signs reviewed and stable. General: Nontoxic, no distress, appears at stated age Cardiovascular: S1S2 reg, no murmur Lungs: CTA bilateral, no rhonchi, no rales, no accessory muscle use Abdominal: Soft, nontender to palpation, no guarding Ext: No gross muscle atrophy, no edema b/l lower extremities, no contractures Neuro: CN II-XI grossly intact, moving all 4 extremities independently Psych: Awake, unable to anser questions or name objects A total of 39 minutes of time were spent preparing this complex discharge summary. Patient was discharged on 10/25/23. This dictation was prepared using [employer] voice recognition software. Though every attempt is made to correct errors during dictation some may still exist. Plan - Discharge Summary Discharge Rx Participant: No New Discharge Prescriptions: New lisinopriL [Zestril] 10 mg PO DAILY tab Nicotine 21Mg/24Hr Patch [Habitrol] 1 patch TRANSDERM DAILY patch Clopidogrel [Plavix] 75 mg PO DAILY tab Continue Sertraline [Zoloft] 100 mg PO DAILY carvediloL [Coreg] 6.25 mg PO BID-W/MEALS #60 tab amLODIPine [Norvasc] 10 mg PO DAILY Insulin Glargine,Hum.rec.anlog [Lantus Solostar Pen] 20 units SQ HS Aspirin EC [Ecotrin Low Dose] 81 mg PO DAILY Atorvastatin [Lipitor] 80 mg PO DAILY Discontinued Insulin Aspart [NovoLOG Flexpen] 10 units SQ AC-TID Doxycycline Hyclate 100 mg PO BID traZODone HCL [Desyrel] 75 mg PO HS Discharge Medication List Aspirin EC [Ecotrin Low Dose] 81 mg PO DAILY 10/11/22 [History] Sertraline [Zoloft] 100 mg PO DAILY 10/11/22 [History] carvediloL [Coreg] 6.25 mg PO BID-W/MEALS #60 tab 10/14/22 [Rx] Insulin Glargine,Hum.rec.anlog [Lantus Solostar Pen] 20 units SQ HS 06/15/23 [History] amLODIPine [Norvasc] 10 mg PO DAILY 06/15/23 [History] Atorvastatin [Lipitor] 80 mg PO DAILY 10/19/23 [History] Clopidogrel [Plavix] 75 mg PO DAILY tab 10/25/23 [Rx] Nicotine 21Mg/24Hr Patch [Habitrol] 1 patch TRANSDERM DAILY patch 10/25/23 [Rx] lisinopriL [Zestril] 10 mg PO DAILY tab 10/25/23 [Rx] Follow up Appointment(s)/Referral(s): Donita Martin MD [REFERRING] - 4 Weeks (or the neurologist of your choice) Merrick Hoskins MD [STAFF PHYSICIAN] - 4 Weeks (to review results of 30 day event monitor) [facility] [Primary Care Provider] - 1-2 days Patient Instructions/Handouts: Ischemic Stroke (GEN) Activity/Diet/Wound Care/Special Instructions: Activity: Activity as tolerated with fall precautions Diet: Heart healthy carb consistent diet Special Instructions: Check Accu-Cheks in the morning and with meals. Will need to follow-up with his neurologist or Dr. Jean after discharge. Should also follow-up with his neuro interventionalists after discharge. Discharge Disposition: TRANSFER TO SNF/ECF
--- NOTE | 2023-10-25 15:39 | FL ---
EXAMINATION TYPE: FL barium swallow w video DATE OF EXAM: 10/25/2023 CLINICAL HISTORY: 68-year-old male status post CVA and thickening are due to aspiration. Reassess for any ongoing aspiration. TECHNIQUE: Deglutition study is performed utilizing thin liquid barium, honey and nectar thick liqui d barium, barium thick applesauce, and barium coated cracker. Total fluoroscopy time: 2 minutes 42 seconds. Total images: None. Real-time fluoroscopy support was provided to speech pathology. DOSE AREA PRODUCT (DAP) UGY*M,MGY*CM: 166.24 COMPARISON: None. FINDINGS: Swallow initiation was mildly delayed with bolus free spilling to the level of the vallecula. Otherwi se, the oral and pharyngeal phases show satisfactory initiation and propagation with all modalities t ested. Normal mastication is seen with solid modalities tested. There is no evidence of penetration or aspiration with any modality tested. No significant pharyngeal residue was appreciated. IMPRESSION: Interval improvement. No penetration or aspiration. Slight delayed swallow initiation. Please refer to speech therapist notes for further details if necessary.
--- NOTE | 2023-10-26 01:46 | ECHOT ---
TRANSESOPHAGEAL ECHOCARDIOGRAM INDICATIONS: CVA. PROCEDURE NOTE: After obtaining informed consent, transesophageal echocardiogram was performed in left lateral position using an Omniplane probe. Local and IV sedation were obtained with xylocaine, Versed and fentanyl. The patient tolerated the procedure well without any obvious immediate complications. Total sedation time was 10 minutes. FINDINGS: 1. There is no intracardiac thrombus within the left atrial appendage, left atrium, right atrium, or right ventricle. 2. Interatrial septum, there is no evidence of [id number] shunt by color-flow Doppler or [id number]-[id number] shunt by agitated saline contrast study. 3. Left ventricle has normal size and function. 4. Aortic valve is a 3-leaflet valve, there is no evidence of aortic stenosis or regurgitation. 5. Aortic root measures normally. 6. There is mild mitral regurgitation noted, tricuspid valve appears normal. Left atrium appears enlarged, right atrium, right ventricle seen within normal limits. CONCLUSION: No intracardiac thrombus. No evidence of shunting across the interatrial septum. MMODL / IJN: [id number] /
== END 2023-10-25 16:05 | DRG 65 ==
LOC: EC 13:55 → 3SCARD 17:16
PROVIDERS: ADMIT Student in an Organized Health Care Education/Training Program; ATTEND Student in an Organized Health Care Education/Training Program
PROC: B24BZZ4 Ultrasonography of Heart with Aorta, Transesophageal (ICD-10-PCS; principal; 2023-10-25 08:25)
DX: I63.412 Cerebral infarction due to embolism of left middle cerebral artery (principal); E87.20 Acidosis, unspecified; G81.91 Hemiplegia, unspecified affecting right dominant side; M62.82 Rhabdomyolysis; I25.10 Atherosclerotic heart disease of native coronary artery without angina pectoris; Z95.1 Presence of aortocoronary bypass graft; E78.5 Hyperlipidemia, unspecified; E11.51 Type 2 diabetes mellitus with diabetic peripheral angiopathy without gangrene; R47.01 Aphasia; F17.200 Nicotine dependence, unspecified, uncomplicated; G47.30 Sleep apnea, unspecified; I65.02 Occlusion and stenosis of left vertebral artery; F41.9 Anxiety disorder, unspecified; I50.9 Heart failure, unspecified; R47.1 Dysarthria and anarthria; R29.810 Facial weakness; E11.65 Type 2 diabetes mellitus with hyperglycemia; F32.A Depression, unspecified; I11.0 Hypertensive heart disease with heart failure; I44.0 Atrioventricular block, first degree; I67.1 Cerebral aneurysm, nonruptured; R29.720 NIHSS score 20; R13.10 Dysphagia, unspecified; W06.XXXA Fall from bed, initial encounter; Y92.230 Patient room in hospital as the place of occurrence of the external cause; S40.011A Contusion of right shoulder, initial encounter; Z86.73 Personal history of transient ischemic attack (TIA), and cerebral infarction without residual deficits; I25.2 Old myocardial infarction; Z86.14 Personal history of Methicillin resistant Staphylococcus aureus infection; Z79.4 Long term (current) use of insulin; Z79.82 Long term (current) use of aspirin; Z79.899 Other long term (current) drug therapy; Z86.11 Personal history of tuberculosis
CPT/HCPCS: 36415; 70450; 70496; 70498; 71046; 74230; 80048; 80053; 80061; 82550; 83036; 84443; 85025; 85027; 85610; 85730; 93005; 93270; 93306; 93312; 93320; 93325; 96361; 96374; 96375; 99291